=== PATIENT | male | born 1930 | race Caucasian/White ===

== ENCOUNTER 2017-01-07 11:01 | Outpatient (CLI) | payer MEDICARE, OTHER | END 2017-01-07 11:02 | disposition home or self-care (01) | DX: R73.9 Hyperglycemia, unspecified (principal) ==

== ENCOUNTER 2017-02-14 11:10 | Outpatient (CLI) | payer MEDICARE, OTHER | END 2017-02-14 11:11 | disposition home or self-care (01) | DX: R01.1 Cardiac murmur, unspecified (principal); I35.0 Nonrheumatic aortic (valve) stenosis ==

== ENCOUNTER 2017-02-24 09:04 | Outpatient (CLI) | payer MEDICARE, OTHER | END 2017-02-24 09:05 | disposition critical access hospital (66) | DX: R55 Syncope and collapse (principal); S01.01XA Laceration without foreign body of scalp, initial encounter; R61 Generalized hyperhidrosis; R47.81 Slurred speech; W22.8XXA Striking against or struck by other objects, initial encounter; W18.39XA Other fall on same level, initial encounter; Y93.89 Activity, other specified; Y92.003 Bedroom of unspecified non-institutional (private) residence as the place of occurrence of the external cause | CPT/HCPCS: A0425; A0427 ==

== ENCOUNTER 2017-02-24 09:21 | Observation (INO) | payer MEDICARE, OTHER ==
[2017-02-24] MEDS ORDERED: TETANUS/DIPHTHERIA/PERTUSSIS 0.5 ML SYRINGE IM ONE ×2 (09:26→10:55)
[2017-02-24] MEDS ORDERED: SODIUM CHLORIDE 0.9% 1,000 ML IV ONE (09:29)
[2017-02-24] MEDS ORDERED: SODIUM CHLORIDE FLUSH 0.9% 10 ML SYRINGE IVP PRN (13:22)
[2017-02-24] MEDS ORDERED: ONDANSETRON 4 MG/2 ML VIAL IVP PRN (13:22)
[2017-02-24] MEDS ORDERED: ACETAMINOPHEN 325 MG TABLET PO PRN (13:22)
[2017-02-24] MEDS: SODIUM CHLORIDE FLUSH 0.9% 10 ML SYRINGE IVP SCH ×2 (15:06→20:16)
[2017-02-24] MEDS: SODIUM CHLORIDE 0.9% 1,000 ML IV SCH (15:06)
[2017-02-25] MEDS ORDERED: CARBOXYMETHYLCELLULOSE OPHTH DROPS EACHEYE PRN (01:03)
[2017-02-25] MEDS: SODIUM CHLORIDE FLUSH 0.9% 10 ML SYRINGE IVP SCH (05:02)
[2017-02-25] MEDS ORDERED: MULTIVITAMIN TABLET PO SCH (08:00)
[2017-02-25] MEDS ORDERED: POLYETHYLENE GLYCOL 3350 17 GM PACKET PO SCH (09:00)
[2017-02-25] MEDS: SODIUM CHLORIDE 0.9% 1,000 ML IV SCH (11:08)
== END 2017-02-25 12:31 | disposition home or self-care (01) ==
DX: R55 Syncope and collapse (principal); I10 Essential (primary) hypertension; E86.0 Dehydration; S01.01XA Laceration without foreign body of scalp, initial encounter; W18.39XA Other fall on same level, initial encounter; Y92.003 Bedroom of unspecified non-institutional (private) residence as the place of occurrence of the external cause; I95.9 Hypotension, unspecified; M25.551 Pain in right hip; E78.00 Pure hypercholesterolemia, unspecified; Z87.891 Personal history of nicotine dependence; Z85.46 Personal history of malignant neoplasm of prostate
CPT/HCPCS: 12002; 36415; 70450; 71020; 72125; 80053; 81003; 83605; 83690; 84484; 85025; 87040; 93005; 93010; 93880; 96360; 99284; A9270

== ENCOUNTER 2017-11-13 07:23 | Outpatient (CLI) | payer MEDICARE, OTHER | END 2017-11-13 07:24 | disposition critical access hospital (66) | LOC: EMS 07:23 | PROVIDERS: ATTEND Surgery | DX: R55 Syncope and collapse (principal); R53.83 Other fatigue; R11.0 Nausea; R03.1 Nonspecific low blood-pressure reading | CPT/HCPCS: A0425; A0427 ==

== ENCOUNTER 2017-11-13 07:37 | Observation (INO) | payer MEDICARE, OTHER ==
--- NOTE | 2017-11-13 07:52 | ED Physician Documentation ---
History of Present Illness - Stated complaint Stated Complaint: SYNCOPE - Chief complaint Chief Complaint: General - Additonal information Additional information: hx from pt and EMS 87 male BIBA for hypotension and recurrent syncope this AM pt states he was recently ill with cough saw PMD rx tessalon and cough syrup no other med changes he has then been constipated for a few days, this AM had a large BM than a watery BM and afterwards had syncope and fell several more syncopal episodes after that not related to BM no blood in BM per pt per AMS SBP was 60 when they arrived up to 9p after 400 ml of fluids pt denies any [employer] CP right now he does have upper abd pain Review of Systems Constitutional: denies: Fever, Chills Throat: denies: Sore throat Cardiac: denies: Chest pain / pressure Respiratory: reports: Cough. denies: Dyspnea GI: reports: Abdominal Pain, Constipation. denies: Nausea, Vomiting : denies: Dysuria Skin: denies: Rash Neurologic: reports: Syncope (numerous) Endocrine: denies: Easy bruising / bleeding Immunocompromised: denies: Immunocompromised PD PAST MEDICAL HISTORY - Past Medical History Cardiovascular: Hypertension, High cholesterol Respiratory: None Neuro: None Endocrine/Autoimmune: None GI: GI bleed : Other HEENT: None Psych: None Musculoskeletal: None Derm: None - Past Surgical History Past Surgical History: Yes General: Colonoscopy Ortho: Hip replacement, Knee replacement HEENT: Cataracts, Tonsil/Adenoidectomy - Present Medications Home Medications: Ambulatory Orders Medication Instructions Recorded Confirmed Lisinopril [Zestril] 5 mg PO DAILY 12/29/13 11/13/17 Rosuvastatin Calcium [Crestor] 10 mg PO QDBREAKFAST 02/02/15 11/13/17 Aspirin 81 mg PO DAILY 11/13/17 11/13/17 Docusate Sodium 200 mg PO QPM 11/13/17 11/13/17 Pantoprazole [Protonix] 40 mg PO QDAC 11/13/17 11/13/17 Vit A/Vit C/Vit E/Zinc/Copper 1 tab PO DAILY 11/13/17 11/13/17 [Icaps Areds Softgel] Vitamin B Complex 1 tab PO DAILY 11/13/17 11/13/17 - Allergies Allergies/Adverse Reactions: Allergies Allergy/AdvReac Type Severity Reaction Status Date / Time codeine AdvReac Intermediate Unknown Verified 11/13/17 07:46 Sulfa (Sulfonamide AdvReac Intermediate Rash Verified 11/13/17 07:46 Antibiotics) - Social History Does the pt smoke?: No Smoking Status: Never smoker Does the pt drink ETOH?: No Does the pt have substance abuse?: No - Immunizations Immunizations are current?: No Immunizations: TDAP current <10years - POLST Patient has POLST: Yes PD ED PE NORMAL - Vitals Vital signs reviewed: Yes (BP up to 102 now) - General General: Alert and oriented X 3 - HEENT HEENT: PERRL, Other (abrasion to face) - Neck Neck: No bony TTP (but will image given fall HI and age) - Cardiac Cardiac: RRR - Respiratory Respiratory: No respiratory distress, Clear bilaterally - Abdomen Abdomen: Other (TTP upper abd s pulsatile mass distension or guarding) - Rectal Rectal: Other (rectal = yellow brown heme neg stool QC passed) - Derm Derm: Normal color - Extremities Extremities: No edema, No calf tenderness / cord - Neuro Neuro: Alert and oriented X 3 Eye Opening: Spontaneous Motor: Obeys Commands Verbal: Oriented GCS Score: 15 Results - Vitals Vitals: Vital Signs - 24 hr 11/13/17 11/13/17 11/13/17 07:42 10:33 11:05 Temperature 36.6 C Heart Rate 82 80 79 Respiratory 14 18 17 Rate Blood Pressure 102/86 H 101/63 112/77 O2 Saturation 97 99 100 Oxygen O2 Source Room air - EKG (time done) 0744 Rate: Rate (enter#) (83) Rhythm: NSR Intervals: 1st degree AVB Ischemia: Other (some BERTA elev anterior is concave up and may be repol but will check pt EKG in 15 min to assess for developing ischemia) 0826 (pt was in CT) Rate: Rate (enter#) (81) Rhythm: NSR Intervals: 1st degree AVB Ischemia: ST elevation c/w repol Compare to prior EKG: Other (similar to EKG # 1 ST elev concave up more c/w repol or LVH than ischemia, no dynamic chnages) - Labs Labs: Laboratory Tests 11/13/17 11/13/17 11/13/17 08:25 08:25 08:25 WBC 13.0 H RBC 5.39 Hgb 12.9 L Hct 39.9 L MCV 73.9 L MCH 24.0 L MCHC 32.5 RDW 18.7 H Plt Count 326 MPV 7.3 L Neut # 11.3 H Lymph # 0.8 L Grundy # 0.6 Eos # 0.3 Baso # 0.1 Absolute Nucleated RBC 0.00 Nucleated RBC % 0.0 Sodium 139 Potassium 3.9 Chloride 106 Carbon Dioxide 23 Anion Gap 10.0 BUN 18 Creatinine 1.1 Estimated GFR (MDRD) 63 L Glucose 142 H Lactic Acid Calcium 8.4 L Total Bilirubin 0.5 AST 25 ALT 24 Alkaline Phosphatase 51 Troponin I < 0.04 Total Protein 6.5 L Albumin 3.6 Globulin 2.9 Albumin/Globulin Ratio 1.2 Lipase 21 L Urine Color Urine Clarity Urine pH Ur Specific [place] Urine Protein Urine Glucose (UA) Urine Ketones Urine Occult Blood Urine Nitrite Urine Bilirubin Urine Urobilinogen Ur Leukocyte Esterase Ur Microscopic Review Urine Culture Comments Influenza A (Rapid) Influenza B (Rapid) Influenza Types A,B Ag 11/13/17 11/13/17 11/13/17 08:25 09:40 10:08 WBC RBC Hgb Hct MCV MCH MCHC RDW Plt Count MPV Neut # Lymph # Grundy # Eos # Baso # Absolute Nucleated RBC Nucleated RBC % Sodium Potassium Chloride Carbon Dioxide Anion Gap BUN Creatinine Estimated GFR (MDRD) Glucose Lactic Acid 2.1 Calcium Total Bilirubin AST ALT Alkaline Phosphatase Troponin I Total Protein Albumin Globulin Albumin/Globulin Ratio Lipase Urine Color YELLOW Urine Clarity CLEAR Urine pH 7.0 Ur Specific [place] 1.015 Urine Protein NEGATIVE Urine Glucose (UA) NEGATIVE Urine Ketones NEGATIVE Urine Occult Blood NEGATIVE Urine Nitrite NEGATIVE Urine Bilirubin NEGATIVE Urine Urobilinogen 0.2 (NORMAL) Ur Leukocyte Esterase NEGATIVE Ur Microscopic Review NOT INDICATED Urine Culture Comments NOT INDICATED Influenza A (Rapid) Negative Influenza B (Rapid) Negative Influenza Types A,B Ag - - Rads (name of study) CTH Radiology: See rad report (no acute injury, aaron maxillary acute sinusitis) CTCS Radiology: See rad report (no fx, degen changes, scoliosis stable) CT AP Radiology: See rad report (no acute process no AAA) CXR Radiology: See rad report (stable atelectasis, no acute) PD MEDICAL DECISION MAKING - ED course ED course: recurrent syncope and hypotension no infectious cause found abd pain but CT neg for acute process heme neg stool and nl H/H abn EKG but not dynamic changes and trop neg initially felt pt merits further obs for tele echo etc but chart review shows pt has been admitted and worked up for same sx several times already within the last year including tele serial trops, echo carotids etc and no cause except dehydration has been found so then planned to give a L NS and reassess- if better may dc after all since repeating the same work up yet again is unlikely to be fruitful family arrived - d/w and family - says he is absolutely not dehydrated - she has made sure he drinks at least 3 l a day - she says that this is different than the other times and she does not feel he is safe to take home - so will obs after all - may not need echo etc done again Departure - Departure Disposition: ED Place in Observation Clinical Impression: Syncope Qualifiers: Syncope type: unspecified Qualified Code(s): R55 - Syncope and collapse Hypotension Qualifiers: Hypotension type: unspecified hypotension type Qualified Code(s): I95.9 - Hypotension, unspecified Condition: Fair Discharge Date/Time: 11/13/17 12:27
[2017-11-13 08:33] LABS: BASOPHILS # (AUTO) 0.1 10^3/uL (0.0-0.1); BASOPHILS % (AUTO) 0.5 %; EOSINOPHILS # (AUTO) 0.3 10^3/uL (0.0-0.7); EOSINOPHILS % (AUTO) 2.1 %; HGB - HEMOGLOBIN 12.9 g/dL (14.0-18.0); LYMPHOCYTES # (AUTO) 0.8 10^3/uL (1.5-3.5); LYMPHOCYTES % (AUTO) 6.5 %; MEAN CORPUSCULAR HGB CONC 32.5 g/dL (32.0-36.0); MEAN CORPUSCULAR VOLUME 73.9 fL (80.0-94.0); MEAN PLATELET VOLUME 7.3 fL (7.4-11.4); MONOCYTES # (AUTO) 0.6 10^3/uL (0.0-1.0); MONOCYTES % (AUTO) 4.4 %; NEUTROPHILS # (AUTO) 11.3 10^3/uL (1.5-6.6); NEUTROPHILS % (AUTO) 86.5 %; PLT - PLATELET COUNT 326 10^3/uL (130-450); RED BLOOD COUNT 5.39 10^6/uL (4.70-6.10); RED CELL DISTRIBUTION WIDTH 18.7 % (12.0-15.0)
--- NOTE | 2017-11-13 08:34 | CT Report ---
EXAM: CT HEAD EXAM DATE: 11/13/2017 08:17 AM. CLINICAL HISTORY: Fall HI. COMPARISON: 02/24/2017. TECHNIQUE: Multiaxial CT images were obtained from the foramen magnum to the vertex. Reformats: Coron al. IV contrast: None. In accordance with CT protocol optimization, one or more of the following dose reduction techniques w ere utilized for this exam: automated exposure control, adjustment of mA and/or KV based on patient s ize, or use of iterative reconstructive technique. FINDINGS: Parenchyma: No intraparenchymal hemorrhage. No evidence of mass, midline shift, or CT findings of acu te infarction. Palencia-white differentiation is distinct. Diffuse chronic microangiopathic white matter changes are evident. Extraaxial Spaces: Normal for age. No subdural or epidural collections identified. Ventricles: The ventricles and cortical sulci are enlarged, consistent with age-related tissue loss. Sinuses and orbits: New, moderate to severe soft tissue thickening within the left maxillary sinus an d mild thickening within the right maxillary sinus. Bones: No evidence of fracture or calvarial defect. Other: None. IMPRESSION: 1. Generalized age-related cortical atrophic changes without evidence of acute intracranial abnormali ty. 2. New moderate to severe left and mild right maxillary sinusitis. [facility] Referring Provider Line: [phone] SITE ID: [id number]
--- NOTE | 2017-11-13 08:44 | CT Report ---
EXAM: CT CERVICAL SPINE WITHOUT CONTRAST DATE: 11/13/2017 08:17 AM. HISTORY: Fall HI. Neck pain. COMPARISONS: 02/24/2017. TECHNIQUE: Thin-section axial images were acquired of the cervical spine without contrast. Post-proce ssing: Coronal and sagittal reformats. Other: None. In accordance with CT protocol optimization, one or more of the following dose reduction techniques w ere utilized for this exam: automated exposure control, adjustment of mA and/or KV based on patient s ize, or use of iterative reconstructive technique. FINDINGS: Alignment: Dextroconvexity cervical scoliosis redemonstrated. No significant listhesis. Bones: No fracture or bone lesion. Interspace Levels/Facets: Substantial, diffuse degenerative disk disease with moderate to severe disk space narrowing throughou t and moderate vertebral body spurring. There is partial C3-C4 and minimal C2-C3 intervertebral body fusion. There is facet osseous fusion on the left at C2-C3 and C3-C4. Degenerative facet disease is g reatest on the left in the upper cervical spine. These findings are without significant interval cardona ge. Hypertrophic changes are associated with bony neural foraminal stenosis which is greatest bilater ally at C4-C5 and on the right at C6-C7 and C7-T1, without significant change. Musculature: Normal. No fatty atrophy. Other: The paravertebral and prevertebral soft tissues are unremarkable. The lung apices are clear. IMPRESSION: 1. No fracture or acute abnormality. 2. Stable extensive degenerative and chronic osseous changes, as above. 3. Stable cervical dextro convexity scoliosis. [facility] Referring Provider Line: [phone] SITE ID: [id number]
--- NOTE | 2017-11-13 08:45 | XRAY Preliminary Report ---
Exam: XR CHEST 2 VIEW X-RAY IMPRESSION: 1. Stable mild left basilar probable atelectasis. 2. Stable hypoinflation and right hemidiaphragm elevation. [facility] SITE ID: [id number]
--- NOTE | 2017-11-13 08:46 | XRAY Report ---
EXAM: CHEST RADIOGRAPHY EXAM DATE: 11/13/2017 08:22 AM. CLINICAL HISTORY: Hypotension. COMPARISON: 02/24/2017. TECHNIQUE: 2 views. FINDINGS: Lungs/Pleura: Small lung volumes and right hemidiaphragm elevation are without significant change. Mi ld left basilar probable atelectasis is without gross change. Lungs otherwise demonstrate no focal op acity. No pleural effusion or pneumothorax. Mediastinum: Heart and mediastinal contours are unremarkable. Other: None. IMPRESSION: 1. Stable mild left basilar probable atelectasis. 2. Stable hypoinflation and right hemidiaphragm elevation. [facility] Referring Provider Line: [phone] SITE ID: [id number]
--- NOTE | 2017-11-13 08:55 | CT Preliminary Report ---
Exam: CT ABDOMEN/PELVIS W/O IMPRESSION: 1. No definite acute abnormality of the abdomen or the pelvis. 2. Chronic and postoperative findings, as above. [facility] SITE ID: [id number]
--- NOTE | 2017-11-13 08:55 | CT Report ---
EXAM: CT ABDOMEN AND PELVIS EXAM DATE: 11/13/2017 08:18 AM. CLINICAL HISTORY: Abd pain, hypotension, syncope, no pulsatile mass. COMPARISONS: 08/18/2007, axial images only. TECHNIQUE: Routine helical CT imaging was performed through the abdomen and pelvis. IV contrast: None . Enteric contrast: No. Reconstructions: Coronal and sagittal. In accordance with CT protocol optimization, one or more of the following dose reduction techniques w ere utilized for this exam: automated exposure control, adjustment of mA and/or KV based on patient s ize, or use of iterative reconstructive technique. FINDINGS: Lung Bases: Decreased bibasilar dependent atelectasis. Coronary artery calcifications and moderate si zed hiatal hernia redemonstrated. Liver/spleen/pancreas/adrenal glands: Unremarkable, by noncontrast imaging. Gallbladder/Bile Ducts: Unremarkable. Kidneys: Multiple bilateral small rounded renal lesions are demonstrated ranging from hypodense to is odense and hyperdense. None demonstrate substantial interval increase compared to 2006 and therefore are consistent with cysts and complex cysts. No hydronephrosis or hydroureter. Small left lateral cor tical calcification again demonstrated at the site of probable scarring. Additional tiny nonobstructi ng left calculus is stable. Peritoneal Cavity/Bowel: No definite free air, free fluid or adenopathy. The appendix is well visuali zed and normal. Colonic diverticulosis without evidence of diverticulitis. No definite acute abnormal ity of the bowel. Pelvic Organs: Limited evaluation due to artifact from hip arthroplasties and surgical clips within t he pelvis. Evidence of prior prostatectomy. No gross abnormality of the visualized bladder. Surgical clips in the region of the proximal inguinal canals. Vasculature: Moderate calcifications, without aneurysm. Bones: Status post bilateral hip arthroplasties with associated obscuring artifact. There is levoconv exity lumbar scoliosis, degenerative disease of the spine and of the SI joints. No definite acute abn ormality. Other: None. IMPRESSION: 1. No definite acute abnormality of the abdomen or the pelvis. 2. Chronic and postoperative findings, as above. [facility] Referring Provider Line: [phone] SITE ID: [id number]
[2017-11-13 09:00] LABS: ALBUMIN 3.6 g/dL (3.2-5.5); ALBUMIN/GLOBULIN RATIO 1.2 (1.0-2.2); BILIRUBIN,TOTAL 0.5 mg/dL (0.2-1.0); CALCIUM 8.4 mg/dL (8.5-10.3); CREATININE 1.1 mg/dL (0.6-1.2); TOTAL PROTEIN 6.5 g/dL (6.7-8.2)
[2017-11-13 10:13] LABS: BILIRUBIN,URINE NEGATIVE (NEGATIVE); GLUCOSE, URINE (UA) NEGATIVE (NEGATIVE); KETONES,URINE (UA) NEGATIVE (NEGATIVE); LEUKOCYTE ESTERASE, URINE NEGATIVE (NEGATIVE); NITRITE,URINE NEGATIVE (NEGATIVE); OCCULT BLOOD,URINE NEGATIVE (NEGATIVE); PROTEIN,URINE NEGATIVE (NEGATIVE); UROBILINOGEN,URINE 0.2 (NORMAL) E.U./dL (NORMAL)
[2017-11-13 10:25] LABS: CLARITY,URINE CLEAR (CLEAR)
[2017-11-13] MEDS ORDERED: SODIUM CHLORIDE 0.9% 1,000 ML IV ONE (10:33)
[2017-11-13] MEDS ORDERED: SODIUM CHLORIDE FLUSH 0.9% 10 ML SYRINGE IVP PRN (11:34)
[2017-11-13] MEDS ORDERED: ZOLPIDEM 5 MG TABLET PO PRN (11:34)
[2017-11-13] MEDS ORDERED: HYDROcod/ACETAM 5/325 MG TABLET PO PRN (11:34)
[2017-11-13] MEDS ORDERED: ONDANSETRON 4 MG/2 ML VIAL IVP PRN (11:34)
[2017-11-13] MEDS ORDERED: HYDROcod/ACETAM 10 MG/325 MG TABLET PO PRN (11:34)
[2017-11-13] MEDS ORDERED: PROCHLORPERAZINE 10 MG/2 ML VIAL IVP PRN (11:34)
[2017-11-13] MEDS: ACETAMINOPHEN 325 MG TABLET PO PRN (13:37)
[2017-11-13] MEDS: SODIUM CHLORIDE FLUSH 0.9% 10 ML SYRINGE IVP SCH ×2 (13:37→22:07)
[2017-11-13] MEDS: SODIUM CHLORIDE 0.9% 1,000 ML IV SCH ×2 (13:37→22:06)
[2017-11-13] MEDS ORDERED: ATORVASTATIN 10 MG TABLET PO SCH (21:00)
--- NOTE | 2017-11-14 04:17 | Ultrasound Preliminary Report ---
Exam: US CAROTID DOPPLER COMPLETE IMPRESSION: Less than 50% stenosis within the internal carotid arteries noted bilaterally. Validated velocity measurements with angiographic measurements and velocity criteria are extrapolated from diameter data as defined by the Society of Radiologists in Ultrasound Consensus Conference Radi ology 2003; 229;340-346. [facility] SITE ID: [id number]
--- NOTE | 2017-11-14 04:25 | Ultrasound Report ---
EXAM: CAROTID DOPPLER ULTRASOUND EXAM DATE: 11/14/2017 01:50 AM. CLINICAL HISTORY: Syncope. COMPARISON: 02/24/2017. TECHNIQUE: Real-time sonographic vascular imaging was performed by the desktop support manager through the [employer] arterial system with a linear transducer utilizing color-flow, Doppler flow and spectral analysis. Multiple digital media representative static images were saved for review. FINDINGS: There is mild bilateral calcified plaque within the common carotid artery as well as the pr oximal internal carotid artery. VELOCITIES: Right: CCA Prox: PSV 221.7 cm/sec. CCA Dist: PSV 90.9 cm/sec, EDV 19.8 cm/sec. ICA Prox: PSV 67.7 cm/sec, EDV 9.7 cm/sec. ICA Mid: PSV 52.4 cm/sec, EDV 10.20 cm/sec. ICA Dist: PSV 60.3 cm/sec, EDV 12.1 cm/sec. ECA: PSV 76.0 cm/sec. Vertebral Artery: PSV 42.0 cm/sec. RVA flow direction: Antegrade. Left: CCA Prox: PSV 120.6 cm/sec. CCA Dist: PSV 71.9 cm/sec, EDV 21.1 cm/sec. ICA Prox: PSV 67.8 cm/sec, EDV 16.8 cm/sec. ICA Mid: PSV 49.3 cm/sec, EDV 26.9 cm/sec. ICA Dist: PSV 44.8 cm/sec, EDV 14.5 cm/sec. ECA: PSV 68.7 cm/sec. Vertebral Artery: PSV 42.0 cm/sec. LVA flow direction: Antegrade. Other: None. IMPRESSION: Less than 50% stenosis within the internal carotid arteries noted bilaterally. Validated velocity measurements with angiographic measurements and velocity criteria are extrapolated from diameter data as defined by the Society of Radiologists in Ultrasound Consensus Conference Radi ology 2003; 229;340-346. [facility] Referring Provider Line: [phone] SITE ID: [id number]
[2017-11-14] MEDS: SODIUM CHLORIDE FLUSH 0.9% 10 ML SYRINGE IVP SCH (05:11)
[2017-11-14 05:36] LABS: BASOPHILS % (AUTO) 0.4 %; EOSINOPHILS # (AUTO) 0.4 10^3/uL (0.0-0.7); HGB - HEMOGLOBIN 11.5 g/dL (14.0-18.0); LYMPHOCYTES # (AUTO) 1.5 10^3/uL (1.5-3.5); LYMPHOCYTES % (AUTO) 20.6 %; MEAN CORPUSCULAR HEMOGLOBIN 23.9 pg (27.0-31.0); MEAN CORPUSCULAR HGB CONC 32.1 g/dL (32.0-36.0); MEAN CORPUSCULAR VOLUME 74.4 fL (80.0-94.0); MEAN PLATELET VOLUME 7.4 fL (7.4-11.4); MONOCYTES # (AUTO) 0.5 10^3/uL (0.0-1.0); MONOCYTES % (AUTO) 7.3 %; NEUTROPHILS # (AUTO) 4.8 10^3/uL (1.5-6.6); NEUTROPHILS % (AUTO) 66.7 %; PLT - PLATELET COUNT 294 10^3/uL (130-450); RED BLOOD COUNT 4.79 10^6/uL (4.70-6.10); RED CELL DISTRIBUTION WIDTH 18.6 % (12.0-15.0); WHITE BLOOD COUNT 7.2 x10^3/uL (4.8-10.8)
[2017-11-14 05:49] LABS: ALBUMIN 3.2 g/dL (3.2-5.5); ALBUMIN/GLOBULIN RATIO 1.2 (1.0-2.2); ALKALINE PHOSPHATASE 43 IU/L (42-121); ALT ALANINE AMINOTRANSFERASE 21 IU/L (10-60); AST ASPARTATE AMINOTRANSFERASE 21 IU/L (10-42); BILIRUBIN,TOTAL 0.5 mg/dL (0.2-1.0); BUN - BLOOD UREA NITROGEN 13 mg/dL (6-20); CALCIUM 8.4 mg/dL (8.5-10.3); CARBON DIOXIDE - CO2 26 mmol/L (21-32); CHLORIDE 109 mmol/L (101-111); CHOL/HDL RATIO 2.5 (<5.0); CHOLESTEROL 100 mg/dL; CREATININE 0.8 mg/dL (0.6-1.2); GFR - MDRD 91 (>89); GLUCOSE 98 mg/dL (70-100); HDL CHOLESTEROL 40 mg/dL; LDL CHOLESTEROL,CALCULATED 47 mg/dL; LDL/HDL RATIO 1.2 (<3.6); SODIUM 141 mmol/L (135-145); TOTAL PROTEIN 5.9 g/dL (6.7-8.2); VLDL CHOLESTEROL 13 mg/dL
[2017-11-14] MEDS ORDERED: PANTOPRAZOLE 40 MG TABLET PO SCH (07:00)
[2017-11-14] MEDS: ACETAMINOPHEN 325 MG TABLET PO PRN (07:57)
[2017-11-14] MEDS: SODIUM CHLORIDE 0.9% 1,000 ML IV SCH (08:00)
[2017-11-14] MEDS ORDERED: ASPIRIN CHEW 81 MG TABLET PO SCH (09:00)
[2017-11-14] MEDS ORDERED: ENOXAPARIN 40 MG/0.4 ML SYRINGE SUBQ SCH (09:00)
[2017-11-14] MEDS ORDERED: POLYETHYLENE GLYCOL 3350 17 GM PACKET PO SCH (09:00)
--- NOTE | 2017-11-14 10:54 | Discharge Plan ---
Discharge Plan Disposition: 01 Home, Self Care Condition: Good Diet: Regular (Drink plenty of fluids) Activity Restrictions: Activity as Tolerated Shower Restrictions: No Driving Restrictions: No Assistance Devices: Walker Instruction Topics: ED Dehydration, ED Fainting Unkn Cause Additional Instructions or Follow Up instructions: Your tests were all normal except that you were found to have aortic stenosis, which means your heart valve is tight and if you get dehydrated you will be more likely to pass out. You do not need any treatment for this but it is something to keep an eye on. You improved here with fluids and have had no further symptoms. I think it is OK for you to go home - but close follow up with your PMD is very important. Please drink plenty of fluids No Smoking: If you smoke, Please STOP! Call for help.
[2017-11-14 12:35] VITALS: BP 127/62
--- NOTE | 2017-11-14 14:03 | HISTORY & PHYSICAL EXAMINATION ---
Chief Complaint - Chief Complaint Chief Complaint: Syncope History of Present Illness - Admitted From Admitted From:: Emergency department - History Obtained From Records Reviewed: Yes History obtained from: Patient Exam Limitations: None - History of Present Illness HPI Comment/Other: Patient is an 87-year-old gentleman with a past medical history significant for hypertension, hyperlipidemia, GERD, osteoarthritis status post bilateral hip replacement and knee replacement, prostate cancer status post prostatectomy and recurrent syncopal episodes with previous workup being negative who presented to the emergency department with a chief complaint of syncope. The patient states that he was in his normal state of health and got up around 5 AM he had his normal breakfast, went outside got the morning paper and then exercised. He states that he usually goes to get coffee from the coffee shop and when he went out to go get coffee he felt like something was off and decided to come back. He states that he was lightheaded and sat down on the couch. The patient states that he has been constipated for the last 3 days and all of a sudden had the urge to go to the bathroom. He states that he went to the bathroom and had a large bowel movement and then still did not feel well and returned to his living room to lie on the recliner. He states that he lied there for less than an hour when he began feeling rumblings in his stomach and again had to pham to the bathroom. He states that this time he had another large bowel movement but it was loose diarrhea. He states denies having any blood or black stools. The patient states that he then went to get up and the next thing he remembers is his waking him up and trying to get him out of the bathroom. The patient states that he was eventually able to get out of the bathroom and onto the bed. He states that he then had an episode of nausea and vomited a significant amount. The patient's called EMS and the patient was seen at his home by EMS who found that his blood pressure was in the 60s systolic and they started IV fluid and brought him to the emergency department. The patient denies any fevers, chills, headaches, blurred vision, runny nose, sore throat, nasal congestion, neck pain, difficulty swallowing, neck stiffness , chest pain, shortness of air, palpitations, orthopnea, PND, increased lower extremity swelling, urinary urgency, urinary frequency, dysuria, recent unintentional weight loss, changes in appetite, joint pain, muscle aches, joint swelling, back pain or any focal neurologic deficits. On presentation to the emergency department the patient was afebrile he was mildly hypotensive with a blood pressure of 102/63 the patient otherwise was not in any respiratory distress. The patient underwent initial routine lab work which showed a creatinine of 1.1 and a glucose of 142 but a normal lactic acid, negative troponin, and normal electrolytes. The patient did have a slight leukocytosis of 13.0 with a left shift. The patient underwent a CT of his head which revealed generalized age-related cortical atrophic changes without evidence of acute intracranial abnormality. He did have moderate to severe left and right maxillary sinusitis. The patient also underwent a cervical spine CT which showed no fracture or acute abnormality. There was stable extensive degenerative and chronic osseous changes. The patient underwent a chest x-ray which revealed a stable mild left basilar probable atelectasis. The patient also underwent CT of his abdomen and pelvis which showed no definite acute abnormality of the abdomen or pelvis and chronic postoperative changes. The patient's EKG showed a normal sinus rhythm without any significant changes from previous EKG. The patient was given IV fluid in the emergency department with which his blood pressure did improve slightly however given that the patient had another syncopal episode it was felt that the patient warranted an observation stay and further workup. History - Past Medical History Cardiovascular: reports: Hypertension, High cholesterol Respiratory: reports: None Neuro: reports: None Endocrine/Autoimmune: reports: None GI: reports: GERD, GI bleed : reports: Other (Prostate cancer Status post prostatectomy) HEENT: reports: None Psych: reports: None Musculoskeletal: reports: Osteoarthritis Derm: reports: None MRSA Hx?: No - Past Surgical History General: reports: Colonoscopy Ortho: reports: Hip replacement, Knee replacement HEENT: reports: Cataracts, Tonsil/Adenoidectomy - Family & Social History Family History: Mother: (Mom at the age of 57 secondary to heart problems. Father of heart attack at 51), CAD, Father: , [place] Living arrangement: At home Living Situation: With spouse/s.o. Social History Notes: The patient was born in [place] and then went to high school in [place]. 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 He has been for over 60 years and continues to live at home independently with his . He has a son who is a civilian job with the and lives in [place]. Patient has a daughter who a couple of years ago. The patient has smoked for 11 years, less than a pack a day but quit many years ago. The patient no longer drinks alcohol but did so in the past and denies any illicit drug use. - POLST Patient has POLST: Yes POLST Status: Full Code Meds/Allgy - Home Medications Home Medications: Ambulatory Orders Medication Instructions Recorded Confirmed Lisinopril [Zestril] 5 mg PO DAILY 12/29/13 11/13/17 Rosuvastatin Calcium [Crestor] 10 mg PO QDBREAKFAST 02/02/15 11/13/17 Aspirin 81 mg PO DAILY 11/13/17 11/13/17 Docusate Sodium 200 mg PO QPM 11/13/17 11/13/17 Pantoprazole [Protonix] 40 mg PO QDAC 11/13/17 11/13/17 Vit A/Vit C/Vit E/Zinc/Copper 1 tab PO DAILY 11/13/17 11/13/17 [Icaps Areds Softgel] Vitamin B Complex 1 tab PO DAILY 11/13/17 11/13/17 - Allergies Allergies/Adverse Reactions: Allergies Allergy/AdvReac Type Severity Reaction Status Date / Time codeine AdvReac Intermediate Unknown Verified 11/13/17 07:46 Sulfa (Sulfonamide AdvReac Intermediate Rash Verified 11/13/17 07:46 Antibiotics) Review of Systems - Other Findings Other Findings: A comprehensive review of systems was performed the pertinent positives and negatives are stated above in the HPI and the remainder of the review of systems is negative. Exam - Vital Signs Reviewed Vital Signs: Yes Vital Signs: Vital Signs x48h Temp Pulse Resp BP Pulse Ox 11/14/17 12:31 36.2 C L 55 L 16 127/62 100 11/14/17 07:38 36.6 C 69 20 108/57 L 97 - Physical Exam General Appearance: positive: No acute distress, Alert Eyes Bilateral: positive: Normal inspection, PERRL, EOMI, No lid inflammation, Conjunctivae nml, No scleral icterus ENT: positive: ENT inspection nml, Pharynx nml, Dry mucous membranes. negative : Purulent nasal drainage, Pharyngeal erythema, Oral lesions Neck: positive: Nml inspection, Thyroid nml, No JVD, Trachea midline. negative : Thyromegaly, Lymphadenopathy (R), Lymphadenopathy (L), Carotid bruit, Tracheal deviation Cardiovascular: positive: Regular rate & rhythm, No gallop, Systolic murmur Peripheral Pulses: positive: 2+ Abdomen: positive: Non-tender, No organomegaly, Nml bowel sounds, No distention. negative: Guarding, Rebound, Hepatomegaly Back: positive: Nml inspection. negative: CVA tenderness (R), CVA tenderness (L ) Skin: positive: Color nml, No rash, Warm. negative: Cyanosis Extremities: positive: Non-tender, Full ROM, Nml appearance, No pedal edema Neurologic/Psychiatric: positive: Oriented x3, CN's nml (2-12), Motor nml, Sensation nml, Mood/affect nml Conclusion/Plan - Problem List (1) Syncope Conclusion/Plan: Patient presented with a syncopal episode. He had diarrhea and stood up from the toilet when he passed out. Patient was only down for short period of time does not know if he hit his head but had no significant trauma. Patient did undergo CT of his head and cervical spine which were negative. The patient had no significant new changes on his EKG and troponin was negative. Patient was placed in observation for syncope workup. Patient has had multiple episodes of syncope in the past and workup has been negative in the past. Patient's syncope is likely vasovagal and likely secondary to dehydration from diarrhea from possible gastroenteritis. The patient was hypotensive when found at home and mildly hypotensive on presentation to the emergency department which did improve with IV fluid. Plan: Patient will be placed on telemetry and monitored overnight We will get an echocardiogram We will get a carotid Doppler Patient will be given IV fluids We will monitor patient's blood pressure We will get serial troponins Qualifiers: Syncope type: unspecified Qualified Code(s): R55 - Syncope and collapse (2) Gastroenteritis Conclusion/Plan: Patient presented with syncopal episode and prior to the episode did have an episode of diarrhea and then later had vomiting. The patient's CT abdomen pelvis was negative. The patient was hypotensive on presentation and did have leukocytosis. Patient appears likely to have a gastroenteritis which caused him to become hypotensive and vasovagal. Plan: Patient will be given IV fluids We will monitor for any further diarrhea if patient has further episodes we will send stool for testing Patient will be given antiemetics as needed (3) Hypertension Conclusion/Plan: Patient has a history of hypertension but was hypotensive on presentation to the emergency department after a syncopal episode. Patient's blood pressure medications will be held Patient will be given IV fluids We will monitor patient's blood pressure Qualifiers: Hypertension type: essential hypertension Qualified Code(s): I10 - Essential (primary) hypertension (4) Hyperlipidemia Conclusion/Plan: Stable Continue home meds - Lab Results Lab results reviewed: Yes Fish Bones: 11/14/17 05:16 11/14/17 05:16 Other Lab Results: Laboratory Results WBC 7.2 x10^3/uL (4.8-10.8) 11/14/17 05:16 RBC 4.79 10^6/uL (4.70-6.10) 11/14/17 05:16 Hgb 11.5 g/dL (14.0-18.0) L 11/14/17 05:16 Hct 35.6 % (42.0-52.0) L 11/14/17 05:16 MCV 74.4 fL (80.0-94.0) L 11/14/17 05:16 MCH 23.9 pg (27.0-31.0) L 11/14/17 05:16 MCHC 32.1 g/dL (32.0-36.0) 11/14/17 05:16 RDW 18.6 % (12.0-15.0) H 11/14/17 05:16 Plt Count 294 10^3/uL (130-450) 11/14/17 05:16 MPV 7.4 fL (7.4-11.4) 11/14/17 05:16 Neut # 4.8 10^3/uL (1.5-6.6) 11/14/17 05:16 Lymph # 1.5 10^3/uL (1.5-3.5) 11/14/17 05:16 [place] # 0.5 10^3/uL (0.0-1.0) 11/14/17 05:16 Eos # 0.4 10^3/uL (0.0-0.7) 11/14/17 05:16 Baso # 0.0 10^3/uL (0.0-0.1) 11/14/17 05:16 Absolute Nucleated RBC 0.00 x10^3/uL 11/14/17 05:16 Nucleated RBC % 0.0 /100WBC 11/14/17 05:16 Sodium 141 mmol/L (135-145) 11/14/17 05:16 Potassium 4.2 mmol/L (3.5-5.0) 11/14/17 05:16 Chloride 109 mmol/L (101-111) 11/14/17 05:16 Carbon Dioxide 26 mmol/L (21-32) 11/14/17 05:16 Anion Gap 6.0 (6-13) 11/14/17 05:16 BUN 13 mg/dL (6-20) 11/14/17 05:16 Creatinine 0.8 mg/dL (0.6-1.2) 11/14/17 05:16 Estimated GFR (MDRD) 91 (>89) 11/14/17 05:16 Glucose 98 mg/dL (70-100) 11/14/17 05:16 Lactic Acid 2.1 mmol/L (0.5-2.2) 11/13/17 08:25 Calcium 8.4 mg/dL (8.5-10.3) L 11/14/17 05:16 Total Bilirubin 0.5 mg/dL (0.2-1.0) 11/14/17 05:16 AST 21 IU/L (10-42) 11/14/17 05:16 ALT 21 IU/L (10-60) 11/14/17 05:16 Alkaline Phosphatase 43 IU/L (42-121) 11/14/17 05:16 Troponin I < 0.04 ng/mL (<0.49) 11/13/17 23:00 B-Natriuretic Peptide 107 pg/mL (5-100) H 11/14/17 05:16 Total Protein 5.9 g/dL (6.7-8.2) L 11/14/17 05:16 Albumin 3.2 g/dL (3.2-5.5) 11/14/17 05:16 Globulin 2.7 g/dL (2.1-4.2) 11/14/17 05:16 Albumin/Globulin Ratio 1.2 (1.0-2.2) 11/14/17 05:16 Triglycerides 66 mg/dL (-149) 11/14/17 05:16 Cholesterol 100 mg/dL (-199) 11/14/17 05:16 LDL Cholesterol, Calc 47 mg/dL (-129) 11/14/17 05:16 VLDL Cholesterol 13 mg/dL 11/14/17 05:16 HDL Cholesterol 40 mg/dL (60-) L 11/14/17 05:16 LDL/HDL Ratio 1.2 (<3.6) 11/14/17 05:16 Cholesterol/HDL Ratio 2.5 (<5.0) 11/14/17 05:16 Lipase 21 U/L (22-51) L 11/13/17 08:25 Urine Color YELLOW 11/13/17 10:08 Urine Clarity CLEAR (CLEAR) 11/13/17 10:08 Urine pH 7.0 PH (5.0-7.5) 11/13/17 10:08 Ur Specific Reading 1.015 (1.002-1.030) 11/13/17 10:08 Urine Protein NEGATIVE mg/dL (NEGATIVE) 11/13/17 10:08 Urine Glucose (UA) NEGATIVE mg/dL (NEGATIVE) 11/13/17 10:08 Urine Ketones NEGATIVE mg/dL (NEGATIVE) 11/13/17 10:08 Urine Occult Blood NEGATIVE (NEGATIVE) 11/13/17 10:08 Urine Nitrite NEGATIVE (NEGATIVE) 11/13/17 10:08 Urine Bilirubin NEGATIVE (NEGATIVE) 11/13/17 10:08 Urine Urobilinogen 0.2 (NORMAL) E.U./dL (NORMAL) 11/13/17 10:08 Ur Leukocyte Esterase NEGATIVE (NEGATIVE) 11/13/17 10:08 Ur Microscopic Review NOT INDICATED 11/13/17 10:08 Urine Culture Comments NOT INDICATED 11/13/17 10:08 Influenza A (Rapid) Negative (Negative) 11/13/17 09:40 Influenza B (Rapid) Negative (Negative) 11/13/17 09:40 Influenza Types A,B Ag - 11/13/17 09:40 - Diagnostic Imaging Results Diagnostic Imaging Results: positive: Final report reviewed Diagnostic Imaging Results Comments: Carotid Doppler Impression: Less than 50% stenosis within the internal carotid arteries noted bilaterally. CT head Impression: 1. Generalized age-related cortical atrophic changes without evidence of acute intracranial abnormality 2. New moderate to severe left and mild right maxillary sinusitis CT cervical spine Impression: 1. No fracture or acute abnormality 2. Stable extensive degenerative and chronic osseous changes 3. Stable cervical dextroconvexity scoliosis Chest x-ray Impression: 1. Stable mild left basilar probable atelectasis 2. Stable hypoinflation and right hemidiaphragm elevation CT abdomen/pelvis Impression: 1. No definite acute abnormality of the abdomen or pelvis 2. Chronic and postoperative findings. - EKG Results EKG Interpreted Independently: Yes EKG Comparison: Unchanged from prior EKG Core Measures - Anticipated LOS I expect patient to be DC'd or transferred within 96 hours.: Yes - Issues Hospital Issues and Management Plan: Patient was seen and examined on 11/13/2017 this is a late entry H&P. - DVT/VTE - Prophylaxis VTE/DVT Prophylaxis med ordered at admit?: Yes
--- NOTE | 2017-11-14 14:32 | DISCHARGE SUMMARY ---
Discharge Summary Admit Date: 11/13/17 Discharge Date: 11/14/17 Discharging Provider: Derick Madrigal MD Primary Care Provider: Joanna MARISCAL Code Status: Attempt Resuscitation Condition at Discharge: Good Discharge Disposition: 01 Home, Self Care - DIAGNOSES Admission Diagnoses: 1. Syncope 2. Gastroenteritis 3. Hypertension 4. Hyperlipidemia Discharge Diagnoses with Status of Each Condition: 1. Syncope: Resolved 2. Gastroenteritis: Improved 3. Moderate aortic stenosis: Stable 4. Hypertension 5. Hyperlipidemia - HPI History of Present Illness: Patient is an 87-year-old gentleman with a past medical history significant for hypertension, hyperlipidemia, GERD, osteoarthritis status post bilateral hip replacement and knee replacement, prostate cancer status post prostatectomy and recurrent syncopal episodes with previous workup being negative who presented to the emergency department with a chief complaint of syncope. The patient states that he was in his normal state of health and got up around 5 AM he had his normal breakfast, went outside got the morning paper and then exercised. He states that he usually goes to get coffee from the coffee shop and when he went out to go get coffee he felt like something was off and decided to come back. He states that he was lightheaded and sat down on the couch. The patient states that he has been constipated for the last 3 days and all of a sudden had the urge to go to the bathroom. He states that he went to the bathroom and had a large bowel movement and then still did not feel well and returned to his living room to lie on the recliner. He states that he lied there for less than an hour when he began feeling rumblings in his stomach and again had to pham to the bathroom. He states that this time he had another large bowel movement but it was loose diarrhea. He states denies having any blood or black stools. The patient states that he then went to get up and the next thing he remembers is his waking him up and trying to get him out of the bathroom. The patient states that he was eventually able to get out of the bathroom and onto the bed. He states that he then had an episode of nausea and vomited a significant amount. The patient's called EMS and the patient was seen at his home by EMS who found that his blood pressure was in the 60s systolic and they started IV fluid and brought him to the emergency department. The patient denies any fevers, chills, headaches, blurred vision, runny nose, sore throat, nasal congestion, neck pain, difficulty swallowing, neck stiffness , chest pain, shortness of air, palpitations, orthopnea, PND, increased lower extremity swelling, urinary urgency, urinary frequency, dysuria, recent unintentional weight loss, changes in appetite, joint pain, muscle aches, joint swelling, back pain or any focal neurologic deficits. On presentation to the emergency department the patient was afebrile he was mildly hypotensive with a blood pressure of 102/63 the patient otherwise was not in any respiratory distress. The patient underwent initial routine lab work which showed a creatinine of 1.1 and a glucose of 142 but a normal lactic acid, negative troponin, and normal electrolytes. The patient did have a slight leukocytosis of 13.0 with a left shift. The patient underwent a CT of his head which revealed generalized age-related cortical atrophic changes without evidence of acute intracranial abnormality. He did have moderate to severe left and right maxillary sinusitis. The patient also underwent a cervical spine CT which showed no fracture or acute abnormality. There was stable extensive degenerative and chronic osseous changes. The patient underwent a chest x-ray which revealed a stable mild left basilar probable atelectasis. The patient also underwent CT of his abdomen and pelvis which showed no definite acute abnormality of the abdomen or pelvis and chronic postoperative changes. The patient's EKG showed a normal sinus rhythm without any significant changes from previous EKG. The patient was given IV fluid in the emergency department with which his blood pressure did improve slightly however given that the patient had another syncopal episode it was felt that the patient warranted an observation stay and further workup. - HOSPITAL COURSE Hospital Course: Patient presented with episode of syncope which appears likely to have been vasovagal as patient had an episode of diarrhea while on the toilet and then stood up and passed out. The patient underwent extensive workup including CT head, CT cervical spine, carotid Doppler, echocardiogram and telemetry monitoring. The only significant finding was the patient has moderate aortic stenosis. The patient did appear to be dry on examination and had had episode of diarrhea and vomiting at home concerning for possible gastroenteritis. The patient also had a leukocytosis on presentation. Patient was given IV fluids and antiemetics while he was hospitalized. The patient had no further episodes of diarrhea or vomiting and his leukocytosis improved. The patient had no events on telemetry and was back to his normal state of health at the time of discharge. The patient was educated on his diagnosis of aortic stenosis. The patient had no medication changes made prior to discharge. The patient's blood pressure was stable and patient was in good condition at the time of discharge. - ALLERGIES Allergies/Adverse Reactions: Allergies Allergy/AdvReac Type Severity Reaction Status Date / Time codeine AdvReac Intermediate Unknown Verified 11/13/17 07:46 Sulfa (Sulfonamide AdvReac Intermediate Rash Verified 11/13/17 07:46 Antibiotics) - MEDICATIONS Home Medications: Ambulatory Orders Medication Instructions Recorded Confirmed Lisinopril [Zestril] 5 mg PO DAILY 12/29/13 11/13/17 Rosuvastatin Calcium [Crestor] 10 mg PO QDBREAKFAST 02/02/15 11/13/17 Aspirin 81 mg PO DAILY 11/13/17 11/13/17 Docusate Sodium 200 mg PO QPM 11/13/17 11/13/17 Pantoprazole [Protonix] 40 mg PO QDAC 11/13/17 11/13/17 Vit A/Vit C/Vit E/Zinc/Copper 1 tab PO DAILY 11/13/17 11/13/17 [Icaps Areds Softgel] Vitamin B Complex 1 tab PO DAILY 11/13/17 11/13/17 - PHYSICAL EXAM AT DISCHARGE General Appearance: positive: No acute distress, Alert Eyes Bilateral: positive: Normal inspection, PERRL ENT: positive: ENT inspection nml, Pharynx nml, No signs of dehydration. negative: Purulent nasal drainage, Pharyngeal erythema, Oral lesions Neck: positive: Nml inspection, Thyroid nml, No JVD, Trachea midline. negative : Lymphadenopathy (R), Lymphadenopathy (L), Stiff neck, Carotid bruit, Swelling/ bruising Respiratory: positive: Chest non-tender, No respiratory distress, Breath sounds nml. negative: Wheezes, Rales, Rhonchi Cardiovascular: positive: Regular rate & rhythm, No gallop, Systolic murmur Peripheral Pulses: positive: 2+ Abdomen: positive: Non-tender, No organomegaly, Nml bowel sounds, No distention. negative: Guarding, Rebound, Hepatomegaly Back: positive: Nml inspection. negative: CVA tenderness (R), CVA tenderness (L ) Skin: positive: Color nml, No rash, Warm. negative: Cyanosis, Pallor Extremities: positive: Non-tender, Full ROM, Nml appearance, No pedal edema Neurologic/Psychiatric: positive: Oriented x3, CN's nml (2-12), Motor nml, Sensation nml, Mood/affect nml - LABS Result Diagrams: 11/14/17 05:16 11/14/17 05:16 Other Lab Results: Laboratory Results WBC 7.2 x10^3/uL (4.8-10.8) 11/14/17 05:16 RBC 4.79 10^6/uL (4.70-6.10) 11/14/17 05:16 Hgb 11.5 g/dL (14.0-18.0) L 11/14/17 05:16 Hct 35.6 % (42.0-52.0) L 11/14/17 05:16 MCV 74.4 fL (80.0-94.0) L 11/14/17 05:16 MCH 23.9 pg (27.0-31.0) L 11/14/17 05:16 MCHC 32.1 g/dL (32.0-36.0) 11/14/17 05:16 RDW 18.6 % (12.0-15.0) H 11/14/17 05:16 Plt Count 294 10^3/uL (130-450) 11/14/17 05:16 MPV 7.4 fL (7.4-11.4) 11/14/17 05:16 Neut # 4.8 10^3/uL (1.5-6.6) 11/14/17 05:16 Lymph # 1.5 10^3/uL (1.5-3.5) 11/14/17 05:16 [place] # 0.5 10^3/uL (0.0-1.0) 11/14/17 05:16 Eos # 0.4 10^3/uL (0.0-0.7) 11/14/17 05:16 Baso # 0.0 10^3/uL (0.0-0.1) 11/14/17 05:16 Absolute Nucleated RBC 0.00 x10^3/uL 11/14/17 05:16 Nucleated RBC % 0.0 /100WBC 11/14/17 05:16 Sodium 141 mmol/L (135-145) 11/14/17 05:16 Potassium 4.2 mmol/L (3.5-5.0) 11/14/17 05:16 Chloride 109 mmol/L (101-111) 11/14/17 05:16 Carbon Dioxide 26 mmol/L (21-32) 11/14/17 05:16 Anion Gap 6.0 (6-13) 11/14/17 05:16 BUN 13 mg/dL (6-20) 11/14/17 05:16 Creatinine 0.8 mg/dL (0.6-1.2) 11/14/17 05:16 Estimated GFR (MDRD) 91 (>89) 11/14/17 05:16 Glucose 98 mg/dL (70-100) 11/14/17 05:16 Lactic Acid 2.1 mmol/L (0.5-2.2) 11/13/17 08:25 Calcium 8.4 mg/dL (8.5-10.3) L 11/14/17 05:16 Total Bilirubin 0.5 mg/dL (0.2-1.0) 11/14/17 05:16 AST 21 IU/L (10-42) 11/14/17 05:16 ALT 21 IU/L (10-60) 11/14/17 05:16 Alkaline Phosphatase 43 IU/L (42-121) 11/14/17 05:16 Troponin I < 0.04 ng/mL (<0.49) 11/13/17 23:00 B-Natriuretic Peptide 107 pg/mL (5-100) H 11/14/17 05:16 Total Protein 5.9 g/dL (6.7-8.2) L 11/14/17 05:16 Albumin 3.2 g/dL (3.2-5.5) 11/14/17 05:16 Globulin 2.7 g/dL (2.1-4.2) 11/14/17 05:16 Albumin/Globulin Ratio 1.2 (1.0-2.2) 11/14/17 05:16 Triglycerides 66 mg/dL (-149) 11/14/17 05:16 Cholesterol 100 mg/dL (-199) 11/14/17 05:16 LDL Cholesterol, Calc 47 mg/dL (-129) 11/14/17 05:16 VLDL Cholesterol 13 mg/dL 11/14/17 05:16 HDL Cholesterol 40 mg/dL (60-) L 11/14/17 05:16 LDL/HDL Ratio 1.2 (<3.6) 11/14/17 05:16 Cholesterol/HDL Ratio 2.5 (<5.0) 11/14/17 05:16 Lipase 21 U/L (22-51) L 11/13/17 08:25 Urine Color YELLOW 11/13/17 10:08 Urine Clarity CLEAR (CLEAR) 11/13/17 10:08 Urine pH 7.0 PH (5.0-7.5) 11/13/17 10:08 Ur Specific [place] 1.015 (1.002-1.030) 11/13/17 10:08 Urine Protein NEGATIVE mg/dL (NEGATIVE) 11/13/17 10:08 Urine Glucose (UA) NEGATIVE mg/dL (NEGATIVE) 11/13/17 10:08 Urine Ketones NEGATIVE mg/dL (NEGATIVE) 11/13/17 10:08 Urine Occult Blood NEGATIVE (NEGATIVE) 11/13/17 10:08 Urine Nitrite NEGATIVE (NEGATIVE) 11/13/17 10:08 Urine Bilirubin NEGATIVE (NEGATIVE) 11/13/17 10:08 Urine Urobilinogen 0.2 (NORMAL) E.U./dL (NORMAL) 11/13/17 10:08 Ur Leukocyte Esterase NEGATIVE (NEGATIVE) 11/13/17 10:08 Ur Microscopic Review NOT INDICATED 11/13/17 10:08 Urine Culture Comments NOT INDICATED 11/13/17 10:08 Influenza A (Rapid) Negative (Negative) 11/13/17 09:40 Influenza B (Rapid) Negative (Negative) 11/13/17 09:40 Influenza Types A,B Ag - 11/13/17 09:40 - DIAGNOSTIC IMAGING Diagnostic Imaging Results: Final report reviewed Diagnostic Imaging Results Comments: Carotid Doppler Impression: Less than 50% stenosis within the internal carotid arteries noted bilaterally. CT head Impression: 1. Generalized age-related cortical atrophic changes without evidence of acute intracranial abnormality 2. New moderate to severe left and mild right maxillary sinusitis CT cervical spine Impression: 1. No fracture or acute abnormality 2. Stable extensive degenerative and chronic osseous changes 3. Stable cervical dextroconvexity scoliosis Chest x-ray Impression: 1. Stable mild left basilar probable atelectasis 2. Stable hypoinflation and right hemidiaphragm elevation CT abdomen/pelvis Impression: 1. No definite acute abnormality of the abdomen or pelvis 2. Chronic and postoperative findings. - FOLLOW UP Follow Up: Patient will follow up with his primary care physician as needed. Patient was told to drink plenty of water. - TIME SPENT Time Spent in Discharge (Minutes): 35 (FAX TO PCP)
== END 2017-11-14 12:50 | disposition home or self-care (01) ==
LOC: EDUNIT# → ED 07:37 → ICU 11:34 → OBS 20:10
PROVIDERS: ADMIT Internal Medicine; ATTEND Internal Medicine
DX: R55 Syncope and collapse (principal); K52.9 Noninfective gastroenteritis and colitis, unspecified; I35.0 Nonrheumatic aortic (valve) stenosis; I95.9 Hypotension, unspecified; S00.81XA Abrasion of other part of head, initial encounter; W19.XXXA Unspecified fall, initial encounter; Y92.002 Bathroom of unspecified non-institutional (private) residence as the place of occurrence of the external cause; I10 Essential (primary) hypertension; E78.5 Hyperlipidemia, unspecified; K21.9 Gastro-esophageal reflux disease without esophagitis; Z79.82 Long term (current) use of aspirin; Z91.81 History of falling; Z85.46 Personal history of malignant neoplasm of prostate; Z96.643 Presence of artificial hip joint, bilateral; Z96.659 Presence of unspecified artificial knee joint; Z90.79 Acquired absence of other genital organ(s); Z87.891 Personal history of nicotine dependence
CPT/HCPCS: 36415; 70450; 71046; 72125; 74176; 80053; 80061; 81003; 83605; 83690; 83880; 84484; 85025; 87040; 87150; 87275; 87276; 93005; 93306; 93880; 96360; 96361; 99284; 99285; A9270; G0378; 81001; 87086

== ENCOUNTER 2018-03-25 11:22 | Outpatient (CLI) | payer MEDICARE, OTHER | END 2018-03-25 11:23 | disposition critical access hospital (66) | LOC: EMS 11:22 | PROVIDERS: ATTEND Surgery | DX: R55 Syncope and collapse (principal); R11.2 Nausea with vomiting, unspecified | CPT/HCPCS: A0425; A0427 ==

== ENCOUNTER 2018-03-25 11:39 | Emergency (ER) | payer MEDICARE, OTHER ==
--- NOTE | 2018-03-25 12:14 | ED Physician Documentation ---
History of Present Illness - Stated complaint Stated Complaint: SYNCOPE - Chief complaint Chief Complaint: General - History obtained from History obtained from: Patient, Family (), EMS - History of Present Illness Timing: Today (88-year-old gentleman with history of hypertension, hyperlipidemia, GERD, osteoarthritis, status post bilateral hip and knee replacements, prostate cancer status post prostatectomy with recurrent syncopal episodes. [place] [employer] [place] after a fairly normal morning without recent medication changes. He was changing over his cell phone. He was sitting in a chair and started to feel hot and then passed out for a couple of minutes. On dance master arrival he was looking ill and pale and had low blood pressure at 70/50 which resolves quickly with the administration of IV fluids and he feels back to normal now. Of note there was no associated chest pain, trouble breathing, diarrhea, black or tarry stools or other changes in his bowel movements recently.) Review of Systems Ten Systems: 10 systems reviewed and negative Constitutional: denies: Fever, Chills, Fatigue Cardiac: denies: Chest pain / pressure, Palpitations, Pedal edema, Calf pain Respiratory: denies: Dyspnea, Cough, Hemoptysis, Wheezing GI: denies: Abdominal Pain, Diarrhea, Hematemesis, Bloody / black stool : denies: Dysuria, Frequency PD PAST MEDICAL HISTORY - Past Medical History Cardiovascular: Hypertension, High cholesterol Respiratory: None Endocrine/Autoimmune: None GI: GERD, GI bleed : Other HEENT: None Psych: None Musculoskeletal: Osteoarthritis Derm: None - Past Surgical History Past Surgical History: Yes General: Colonoscopy Ortho: Hip replacement, Knee replacement HEENT: Cataracts, Tonsil/Adenoidectomy - Present Medications Home Medications: Ambulatory Orders Medication Instructions Recorded Confirmed Lisinopril [Zestril] 5 mg PO DAILY 12/29/13 11/13/17 Rosuvastatin Calcium [Crestor] 10 mg PO QDBREAKFAST 02/02/15 11/13/17 Aspirin 81 mg PO DAILY 11/13/17 11/13/17 Docusate Sodium 200 mg PO QPM 11/13/17 11/13/17 Pantoprazole [Protonix] 40 mg PO QDAC 11/13/17 11/13/17 Vit A/Vit C/Vit E/Zinc/Copper 1 tab PO DAILY 01/04/18 01/04/18 [Icaps Areds Softgel] Vitamin B Complex 1 tab PO DAILY 11/13/17 11/13/17 - Allergies Allergies/Adverse Reactions: Allergies Allergy/AdvReac Type Severity Reaction Status Date / Time codeine AdvReac Intermediate Unknown Verified 03/25/18 11:54 Sulfa (Sulfonamide AdvReac Intermediate Rash Verified 03/25/18 11:54 Antibiotics) - Social History Does the pt smoke?: No Smoking Status: Never smoker Does the pt drink ETOH?: No Does the pt have substance abuse?: No - Family History Family history: reports: Non contributory - Immunizations Immunizations are current?: No Immunizations: TDAP current <10years - POLST Patient has POLST: Yes POLST Status: Full Code PD ED PE NORMAL - Vitals Vital signs reviewed: Yes - General General: Alert and oriented X 3, No acute distress, Other (A little hard of hearing) - HEENT HEENT: Pharynx benign - Neck Neck: Supple, no meningeal sign, No bony TTP - Cardiac Cardiac: RRR, Other (He has a 2 out of 6 soft systolic murmur which probably correlates to mild to moderate stenosis of the aortic valve on echo that I see on review of the chart from November of this year.) - Respiratory Respiratory: No respiratory distress, Clear bilaterally - Abdomen Abdomen: Normal bowel sounds, Soft, Non tender - Derm Derm: Normal color, Warm and dry - Extremities Extremities: No edema, No calf tenderness / cord - Neuro Neuro: Alert and oriented X 3 Eye Opening: Spontaneous Motor: Obeys Commands Verbal: Oriented GCS Score: 15 - Psych Psych: Normal mood, Normal affect Results - Vitals Vitals: Vital Signs - 24 hr 03/25/18 11:39 Temperature 36.1 C L Heart Rate 84 Respiratory 18 Rate Blood Pressure 132/77 H O2 Saturation 92 Oxygen O2 Source Room air - EKG (time done) 1155 Rate: Rate (enter#) (85) Rhythm: NSR Intervals: Prolonged IA, Other (LAFB) Ischemia: Non specific changes (He has abnormal R-wave progression and submillimeter ST elevation inferiorly which is all similar and without change to the last EKG on the chart dated November 142017.) Compare to prior EKG: Unchanged from prior EKG Computer interpretation: Agree with computer - Labs Labs: Laboratory Tests 03/25/18 03/25/1803/25/18 12:27 12:27 12:27 WBC 12.0 H RBC 5.34 Hgb 12.9 L Hct 39.4 L MCV 73.8 L MCH 24.1 L MCHC 32.6 RDW 19.3 H Plt Count 271 MPV 7.4 Neut # 10.2 H Lymph # 0.9 L [place] # 0.8 Eos # 0.2 Baso # 0.0 Absolute Nucleated RBC 0.00 Nucleated RBC % 0.0 Sodium 140 Potassium 3.9 Chloride 107 Carbon Dioxide 26 Anion Gap 7.0 BUN 16 Creatinine 1.0 Estimated GFR (MDRD) 70 L Glucose 141 H Lactic Acid Calcium 8.7 Magnesium 2.0 Total Bilirubin 0.7 AST 22 ALT 21 Alkaline Phosphatase 47 Troponin I < 0.04 Total Protein 6.8 Albumin 3.9 Globulin 2.9 Albumin/Globulin Ratio 1.3 Lipase 22 Ethyl Alcohol < 5.0 03/25/18 12:27 WBC RBC Hgb Hct MCV MCH MCHC RDW Plt Count MPV Neut # Lymph # [place] # Eos # Baso # Absolute Nucleated RBC Nucleated RBC % Sodium Potassium Chloride Carbon Dioxide Anion Gap BUN Creatinine Estimated GFR (MDRD) Glucose Lactic Acid 1.2 Calcium Magnesium Total Bilirubin AST ALT Alkaline Phosphatase Troponin I Total Protein Albumin Globulin Albumin/Globulin Ratio Lipase Ethyl Alcohol PD MEDICAL DECISION MAKING - ED course ED course: 88-year-old gentleman with recurrent syncope, he has had many repeat visits for similar issues, in fact the history and physical from November reads almost to the exactly the same as it does today. He felt normal after the menstruation of IV fluids and his blood work, EKG are all similar to prior. We will check orthostatics and if okay discharge him with his . Departure - Departure Disposition: 01 Home, Self Care Clinical Impression: Syncope Qualifiers: Syncope type: unspecified Qualified Code(s): R55 - Syncope and collapse Condition: Good Record reviewed to determine appropriate education?: Yes Instructions: ED Fainting Unkn Cause Comments: Call your doctor to arrange a follow-up appointment, make the next available appointment. In the interim, return anytime if worse or if new symptoms develop.
[2018-03-25 12:32] LABS: BASOPHILS % (AUTO) 0.4 %; EOSINOPHILS # (AUTO) 0.2 10^3/uL (0.0-0.7); EOSINOPHILS % (AUTO) 1.3 %; HGB - HEMOGLOBIN 12.9 g/dL (14.0-18.0); LYMPHOCYTES # (AUTO) 0.9 10^3/uL (1.5-3.5); LYMPHOCYTES % (AUTO) 7.3 %; MEAN CORPUSCULAR HEMOGLOBIN 24.1 pg (27.0-31.0); MEAN CORPUSCULAR HGB CONC 32.6 g/dL (32.0-36.0); MEAN CORPUSCULAR VOLUME 73.8 fL (80.0-94.0); MEAN PLATELET VOLUME 7.4 fL (7.4-11.4); MONOCYTES # (AUTO) 0.8 10^3/uL (0.0-1.0); MONOCYTES % (AUTO) 6.6 %; NEUTROPHILS # (AUTO) 10.2 10^3/uL (1.5-6.6); NEUTROPHILS % (AUTO) 84.4 %; PLT - PLATELET COUNT 271 10^3/uL (130-450); RED BLOOD COUNT 5.34 10^6/uL (4.70-6.10); RED CELL DISTRIBUTION WIDTH 19.3 % (12.0-15.0)
[2018-03-25 12:46] LABS: ALBUMIN 3.9 g/dL (3.2-5.5); ALBUMIN/GLOBULIN RATIO 1.3 (1.0-2.2); ALKALINE PHOSPHATASE 47 IU/L (42-121); ALT ALANINE AMINOTRANSFERASE 21 IU/L (10-60); AST ASPARTATE AMINOTRANSFERASE 22 IU/L (10-42); BILIRUBIN,TOTAL 0.7 mg/dL (0.2-1.0); BUN - BLOOD UREA NITROGEN 16 mg/dL (6-20); CALCIUM 8.7 mg/dL (8.5-10.3); CARBON DIOXIDE - CO2 26 mmol/L (21-32); CHLORIDE 107 mmol/L (101-111); GFR - MDRD 70 (>89); GLUCOSE 141 mg/dL (70-100); LIPASE 22 U/L (22-51); SODIUM 140 mmol/L (135-145); TOTAL PROTEIN 6.8 g/dL (6.7-8.2)
[2018-03-25] MEDS: SODIUM CHLORIDE 0.9% 500 ML IV ONE (13:40)
[2018-03-25 15:12] VITALS: BP 138/82
== END 2018-03-25 15:09 | disposition home or self-care (01) ==
LOC: EDUNIT# → ED 11:39
DX: R55 Syncope and collapse (principal); I10 Essential (primary) hypertension; E78.5 Hyperlipidemia, unspecified; K21.9 Gastro-esophageal reflux disease without esophagitis; M19.90 Unspecified osteoarthritis, unspecified site; Z85.46 Personal history of malignant neoplasm of prostate; Z96.643 Presence of artificial hip joint, bilateral; Z96.653 Presence of artificial knee joint, bilateral; Z79.82 Long term (current) use of aspirin
CPT/HCPCS: 36415; 80053; 80320; 83605; 83690; 83735; 84484; 85025; 93005; 96360; 99283; 99284

== ENCOUNTER 2018-03-25 18:18 | Inpatient (IN) | payer MEDICARE, OTHER ==
--- NOTE | 2018-03-25 18:31 | ED Physician Documentation ---
History of Present Illness - Stated complaint Stated Complaint: FEVER/CHILLS - Chief complaint Chief Complaint: General - History obtained from History obtained from: Patient - History of Present Illness Timing: Other (88-year-old gentleman seen earlier in the day by me for syncope with hypotension on scene but not here. He improved after IV fluids he was orthostatic but not on discharge. His called me about an hour ago and said now he was having Rigors and fever to 100.2. I advised him to return for reevaluation. He has no specific complaints other than feeling cold. He denies cough or urinary complaints, no URI symptoms.) Review of Systems Constitutional: reports: Fever, Chills Cardiac: denies: Chest pain / pressure Respiratory: denies: Dyspnea, Cough GI: denies: Abdominal Pain, Nausea, Vomiting (not since this morning), Diarrhea PD PAST MEDICAL HISTORY - Past Medical History Cardiovascular: Hypertension, High cholesterol Respiratory: None Endocrine/Autoimmune: None GI: GERD, GI bleed : Other HEENT: None Psych: None Musculoskeletal: Osteoarthritis Derm: None - Past Surgical History Past Surgical History: Yes General: Colonoscopy Ortho: Hip replacement, Knee replacement HEENT: Cataracts, Tonsil/Adenoidectomy - Present Medications Home Medications: Ambulatory Orders Medication Instructions Recorded Confirmed Lisinopril [Zestril] 5 mg PO DAILY 12/29/13 11/13/17 Rosuvastatin Calcium [Crestor] 10 mg PO QDBREAKFAST 02/02/15 11/13/17 Aspirin 81 mg PO DAILY 11/13/17 11/13/17 Docusate Sodium 200 mg PO QPM 11/13/17 11/13/17 Pantoprazole [Protonix] 40 mg PO QDAC 11/13/17 11/13/17 Vit A/Vit C/Vit E/Zinc/Copper 1 tab PO DAILY 11/13/17 11/13/17 [Icaps Areds Softgel] Vitamin B Complex 1 tab PO DAILY 11/13/17 11/13/17 - Allergies Allergies/Adverse Reactions: Allergies Allergy/AdvReac Type Severity Reaction Status Date / Time codeine AdvReac Intermediate Unknown Verified 03/25/18 18:30 Sulfa (Sulfonamide AdvReac Intermediate Rash Verified 03/25/18 18:30 Antibiotics) - Social History Does the pt smoke?: No Smoking Status: Never smoker Does the pt drink ETOH?: No Does the pt have substance abuse?: No - Family History Family history: reports: Non contributory - Immunizations Immunizations are current?: No Immunizations: TDAP current <10years - POLST Patient has POLST: Yes POLST Status: Full Code PD ED PE NORMAL - Vitals Vital signs reviewed: Yes - General General: Alert and oriented X 3, No acute distress - HEENT HEENT: Moist mucous membranes, Pharynx benign - Neck Neck: Supple, no meningeal sign, No bony TTP - Cardiac Cardiac: RRR, No murmur - Respiratory Respiratory: Other (Rhonchi at the right base) - Abdomen Abdomen: Soft, Non tender - Back Back: No CVA TTP, No spinal TTP - Derm Derm: Normal color, Warm and dry - Extremities Extremities: No edema, No calf tenderness / cord - Neuro Neuro: Alert and oriented X 3, Normal speech - Psych Psych: Normal mood, Normal affect Results - Vitals Vitals: Vital Signs - 24 hr 03/25/18 18:20 Temperature 38 C H Heart Rate 112 H Respiratory 20 Rate Blood Pressure 150/86 H O2 Saturation 96 Oxygen O2 Source Room air - Labs Labs: Laboratory Tests 03/25/18 03/25/18 03/25/18 18:48 18:48 18:48 WBC 10.4 RBC 5.33 Hgb 12.6 L Hct 39.6 L MCV 74.3 L MCH 23.7 L MCHC 31.9 L RDW 19.3 H Plt Count 280 MPV 7.4 Neut # 8.8 H Lymph # 0.8 L [place] # 0.7 Eos # 0.0 Baso # 0.0 Absolute Nucleated RBC 0.01 Nucleated RBC % 0.0 Sodium 136 Potassium 4.0 Chloride 105 Carbon Dioxide 24 Anion Gap 7.0 BUN 15 Creatinine 0.9 Estimated GFR (MDRD) 79 L Glucose 118 H Lactic Acid 1.2 Calcium 8.4 L - Rads (name of study) 2v chest Radiology: EMP read contemporaneously ([facility]) PD MEDICAL DECISION MAKING - ED course ED course: 88-year-old gentleman presents, he had syncope earlier in the day and improved with treatment here, now with fever and Rigors and found to have otherwise asymptomatic right middle lobe pneumonia (i.e. without cough). He was cultured up and given Rocephin and Zithromax and I spoke with Dr. Madrigal for admission at 7:55 PM. Departure - Departure Disposition: 66 [facility] DC/Xfer Clinical Impression: Pneumonia Qualifiers: Pneumonia type: due to unspecified organism Laterality: right Lung location: middle lobe of lung Qualified Code(s): J18.1 - Lobar pneumonia, unspecified organism Condition: Good
[2018-03-25 18:57] LABS: BASOPHILS % (AUTO) 0.3 %; EOSINOPHILS % (AUTO) 0.3 %; HGB - HEMOGLOBIN 12.6 g/dL (14.0-18.0); LYMPHOCYTES # (AUTO) 0.8 10^3/uL (1.5-3.5); MEAN CORPUSCULAR HEMOGLOBIN 23.7 pg (27.0-31.0); MEAN CORPUSCULAR HGB CONC 31.9 g/dL (32.0-36.0); MEAN CORPUSCULAR VOLUME 74.3 fL (80.0-94.0); MEAN PLATELET VOLUME 7.4 fL (7.4-11.4); MONOCYTES # (AUTO) 0.7 10^3/uL (0.0-1.0); MONOCYTES % (AUTO) 6.8 %; NEUTROPHILS # (AUTO) 8.8 10^3/uL (1.5-6.6); NEUTROPHILS % (AUTO) 84.6 %; PLT - PLATELET COUNT 280 10^3/uL (130-450); RED BLOOD COUNT 5.33 10^6/uL (4.70-6.10); RED CELL DISTRIBUTION WIDTH 19.3 % (12.0-15.0); WHITE BLOOD COUNT 10.4 x10^3/uL (4.8-10.8)
[2018-03-25 19:09] LABS: CALCIUM 8.4 mg/dL (8.5-10.3); CREATININE 0.9 mg/dL (0.6-1.2)
--- NOTE | 2018-03-25 19:35 | XRAY Preliminary Report ---
Exam: XR CHEST 2 VIEW X-RAY IMPRESSION: Right middle lobe infiltrate. [facility] SITE ID: [id number]
--- NOTE | 2018-03-25 19:41 | XRAY Report ---
EXAM: CHEST RADIOGRAPHY EXAM DATE: 03/25/2018 07:22 PM. CLINICAL HISTORY: Fever, chills. COMPARISON: None. TECHNIQUE: 2 views. FINDINGS: Lungs/Pleura: Patchy airspace infiltrates in the right middle lobe. Left lung is clear. No effusion, vascular congestion nor pneumothorax. Mediastinum: Heart and mediastinal contours are unremarkable. Other: None. IMPRESSION: Right middle lobe infiltrate. [facility] Referring Provider Line: [phone] SITE ID: [id number]
[2018-03-25] MEDS ORDERED: AZITHROMYCIN INJ 500 MG in SODIUM CHLORIDE 0.9% 250 ML IV STA (19:47)
[2018-03-25] MEDS ORDERED: cefTRIAXone 1 GM in SODIUM CHLORIDE 0.9% MINIBAG 100 ML IV STA (19:47)
[2018-03-25] MEDS ORDERED: PROCHLORPERAZINE 10 MG/2 ML VIAL IVP PRN (20:06)
[2018-03-25] MEDS ORDERED: SODIUM CHLORIDE FLUSH 0.9% 10 ML SYRINGE IVP PRN (20:06)
[2018-03-25] MEDS ORDERED: ACETAMINOPHEN 325 MG TABLET PO PRN (20:06)
[2018-03-25] MEDS ORDERED: ONDANSETRON 4 MG/2 ML VIAL IVP PRN (20:06)
[2018-03-25] MEDS ORDERED: ZOLPIDEM 5 MG TABLET PO PRN (20:06)
[2018-03-25] MEDS ORDERED: IPRATROPIUM/ALBUTEROL 3 ML NEB INH PRN (20:06)
[2018-03-25] MEDS ORDERED: oxyCODONE 5 MG TABLET PO PRN (20:06)
--- NOTE | 2018-03-25 20:22 | HISTORY & PHYSICAL EXAMINATION ---
Chief Complaint - Chief Complaint Chief Complaint: Chills History of Present Illness - Admitted From Admitted From:: Emergency Department - History Obtained From Records Reviewed: Yes History obtained from: Patient and his Exam Limitations: None - History of Present Illness HPI Comment/Other: Patient is an 88-year-old gentleman with a past medical history significant for hypertension, hyperlipidemia, GERD, osteoarthritis status post bilateral hip replacements and knee replacements, prostate cancer status post prostatectomy and history of recurrent syncopal episodes with previous workup being negative including workup in November 2017 that was negative who presented to the emergency department with a chief complaint of chills. The patient states that he was in his normal state of health and this morning he went to the [employer] to buy a new cell phone. He states that he had set up the cell phone to carry over his old information and was walking around in the [employer] when he all of a sudden became flushed. He states at that point he took off his jacket and placed it on his walker when the next thing he remembers is waking up to a medic asking him how he is. The patient states that 1 of the cashiers at the exchange noticed that the patient looked pale and was about to pass out and was able to get over to the patient and help him to the floor. The patient believes he did lose consciousness as he does not fully remember the events after he put his jacket on his walker. He states that he does remember feeling weak right before the event. The patient also felt nauseated after the episode and did have an episode of vomiting. After this episode the patient was brought into the emergency department as he was found to be hypotensive in the field and had positive orthostatics on presentation. The patient was afebrile and although he did have a mild leukocytosis of 12,000 the remainder of his lab work was negative. The patient had a negative troponin, his EKG showed sinus rhythm without any changes from his previous EKG. The patient had no events on telemetry while he was in the emergency department and had no further symptoms. He was given fluid and then discharged home as he seemed to be in his normal state of health. The patient states that prior to going home he picked up some coffee and seemed to feel fine when he arrived home. The patient states that he went into his kitchen and then all of a sudden felt very shaky and got cold chills. The patient states that this improved after a few minutes but then returned again a few minutes later. The patient states that he had 2 or 3 episodes of chills before his called back to the emergency department. The emergency department physician told him to come back to the ER. The patient denies having any fever, cough, shortness of air, chest pain, orthopnea, PND, increased lower extremity swelling, nausea, vomiting, abdominal pain, urinary urgency, urinary frequency or any dysuria. The patient denies any headaches, blurred vision, runny nose, sore throat, nasal congestion, difficulty swallowing, joint pain, muscle aches, back pain, recent unintentional weight loss, changes in his appetite, any new skin rashes, polydipsia, hair loss, night sweats or any focal neurologic deficits. On presentation to the emergency department this time the patient was febrile with a temperature of 38.0, tachycardic with a heart rate of 112 but blood pressure was stable and he was saturating well on room air. The patient underwent repeat lab work which showed a WBC of 10.4 which was improved from earlier in the day. He also had a hemoglobin of 12.6 which was right around his baseline. The patient's lactic acid was negative his urine analysis was negative. Given his fever, chills and complaint of generalized weakness the patient also underwent an x-ray of his chest which showed a right middle lobe infiltrate. According to the pneumonia severity index the patient was at risk class III with a mortality of 0.9-2.8% and therefore was admitted to the hospital for community-acquired pneumonia. History - Past Medical History Cardiovascular: reports: Hypertension, High cholesterol Respiratory: reports: None Endocrine/Autoimmune: reports: None GI: reports: GERD, GI bleed : reports: Other HEENT: reports: None Psych: reports: None Musculoskeletal: reports: Osteoarthritis Derm: reports: None MRSA Hx?: No - Past Surgical History General: reports: Colonoscopy Ortho: reports: Hip replacement, Knee replacement HEENT: reports: Cataracts, Tonsil/Adenoidectomy - Family & Social History Family History: Mother: (Mom at 57 secondary to heart problems. Father of a heart attack at 51.), CAD, Father: , [place] Living arrangement: At home Living Situation: With spouse/s.o. Social History Notes: The patient was born in [place] and then went to high school in [place]. 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 He has been for over 60 years and continues to live at home independently with his . He has a son who is a civilian job with the and lives in [place]. Patient has a daughter who a couple of years ago. The patient is fully independent and usually ambulates independently but does use a walker from time to time. The patient has smoked for 11 years, less than a pack a day but quit many years ago. The patient no longer drinks alcohol but did so in the past and denies any illicit drug use. - POLST Patient has POLST: Yes POLST Status: Full Code Meds/Allgy - Home Medications Home Medications: Ambulatory Orders Medication Instructions Recorded Confirmed Lisinopril [Zestril] 5 mg PO DAILY 12/29/13 11/13/17 Rosuvastatin Calcium [Crestor] 10 mg PO QDBREAKFAST 02/02/15 11/13/17 Aspirin 81 mg PO DAILY 11/13/17 11/13/17 Docusate Sodium 200 mg PO QPM 11/13/17 11/13/17 Pantoprazole [Protonix] 40 mg PO QDAC 11/13/17 11/13/17 Vit A/Vit C/Vit E/Zinc/Copper 1 tab PO DAILY 11/13/17 11/13/17 [Icaps Areds Softgel] Vitamin B Complex 1 tab PO DAILY 11/13/17 11/13/17 - Allergies Allergies/Adverse Reactions: Allergies Allergy/AdvReac Type Severity Reaction Status Date / Time codeine AdvReac Intermediate Unknown Verified 03/25/18 18:30 Sulfa (Sulfonamide AdvReac Intermediate Rash Verified 03/25/18 18:30 Antibiotics) Review of Systems - Other Findings Other Findings: A comprehensive review of systems was performed the pertinent positives and negatives are stated above in the HPI and the remainder of the review of systems is negative. Exam - Vital Signs Reviewed Vital Signs: Yes Vital Signs: Vital Signs x48h Temp Pulse Resp BP Pulse Ox 03/25/18 18:20 38 C H 112 H 20 150/86 H 96 - Physical Exam General Appearance: positive: No acute distress, Alert Eyes Bilateral: positive: Normal inspection, PERRL, EOMI, No lid inflammation, Conjunctivae nml, No scleral icterus ENT: positive: ENT inspection nml, Pharynx nml, Dry mucous membranes. negative : Purulent nasal drainage, Pharyngeal erythema, Oral lesions Neck: positive: Nml inspection, Thyroid nml, No JVD, Trachea midline. negative : Thyromegaly, Lymphadenopathy (R), Lymphadenopathy (L), Carotid bruit, Tracheal deviation Respiratory: positive: Chest non-tender, No respiratory distress, Rhonchi ( Right mid lung). negative: Wheezes, Rales Cardiovascular: positive: No murmur, No gallop, Tachycardia Peripheral Pulses: positive: 2+ Abdomen: positive: Non-tender, No organomegaly, Nml bowel sounds, No distention. negative: Guarding, Rebound Back: positive: Nml inspection. negative: CVA tenderness (R), CVA tenderness (L ) Skin: positive: Color nml, No rash, Warm. negative: Diaphoresis, Pallor, Skin rash Extremities: positive: Non-tender, Full ROM, Nml appearance, No pedal edema Neurologic/Psychiatric: positive: Oriented x3, CN's nml (2-12), Motor nml, Sensation nml, Mood/affect nml Conclusion/Plan - Problem List (1) CAP (community acquired pneumonia) Conclusion/Plan: Patient initially presented with a syncopal episode earlier in the morning when he did have a leukocytosis and was hypotensive. The patient received IV fluid and appeared to be doing well and was sent home from the emergency department. Later he presented again with chills and rigors at home. On presentation this time the patient was febrile and tachycardic but leukocytosis had improved. The patient was not hypoxic or in any respiratory distress but chest x-ray did reveal a right middle lobe infiltrate. The patient's pneumonia severity index put him at class III and given his advanced age it was felt the patient would be best off treated in the hospital with IV antibiotics and IV fluids. Plan: IV ceftriaxone and azithromycin to treat community-acquired pneumonia IV fluids Blood cultures and sputum cultures Qualifiers: Laterality: right Lung location: middle lobe of lung Qualified Code(s): J18.1 - Lobar pneumonia, unspecified organism (2) Syncope Conclusion/Plan: The patient had an episode of syncope earlier in the day. The patient likely was dehydrated and had a vasovagal syncope. The patient was hypotensive when he was seen in the field but improved with IV fluids. Likely his syncope was related to a pneumonia which was diagnosed later on his second presentation to the emergency department. The patient has had recurrent syncope in the past and has had workup multiple times that has been negative. At this time we do not feel that it is necessary to place the patient on telemetry or do further workup as it appears that the patient is being treated for the likely cause of his syncope and is currently asymptomatic. Qualifiers: Syncope type: vasovagal syncope Qualified Code(s): R55 - Syncope and collapse (3) Hypertension Conclusion/Plan: The patient has history of hypertension and he has been having his blood pressure medications titrated down over the last while. Patient's blood pressure on initial presentation was low but on second presentation to the emergency department patient's blood pressure was high normal. The patient will be given IV fluids and his blood pressure medications will be continued We will monitor the patient's blood pressure and titrate medications as needed. Qualifiers: Hypertension type: essential hypertension (4) Hyperlipidemia Conclusion/Plan: The patient has history of hyperlipidemia and is currently on Crestor at home Stable Continue home meds Qualifiers: Hyperlipidemia type: unspecified Qualified Code(s): E78.5 - Hyperlipidemia , unspecified (5) Anemia Conclusion/Plan: The patient does have mild anemia which appears to be chronic. The patient has a low MCV. He is not on any iron supplements and does not appear to have any previous workup for his anemia. We will workup the patient's anemia with a iron panel, ferritin level, B12 and folate level. We will replace these if needed. Monitor CBC Qualifiers: Anemia type: unspecified type Qualified Code(s): D64.9 - Anemia, unspecified - Lab Results Lab results reviewed: Yes Fish Bones: 03/25/18 18:48 03/25/18 18:48 Other Lab Results: Laboratory Results WBC 10.4 x10^3/uL (4.8-10.8) 03/25/18 18:48 RBC 5.33 10^6/uL (4.70-6.10) 03/25/18 18:48 Hgb 12.6 g/dL (14.0-18.0) L 03/25/18 18:48 Hct 39.6 % (42.0-52.0) L 03/25/18 18:48 MCV 74.3 fL (80.0-94.0) L 03/25/18 18:48 MCH 23.7 pg (27.0-31.0) L 03/25/18 18:48 MCHC 31.9 g/dL (32.0-36.0) L 03/25/18 18:48 RDW 19.3 % (12.0-15.0) H 03/25/18 18:48 Plt Count 280 10^3/uL (130-450) 03/25/18 18:48 MPV 7.4 fL (7.4-11.4) 03/25/18 18:48 Neut # 8.8 10^3/uL (1.5-6.6) H 03/25/18 18:48 Lymph # 0.8 10^3/uL (1.5-3.5) L 03/25/18 18:48 [place] # 0.7 10^3/uL (0.0-1.0) 03/25/18 18:48 Eos # 0.0 10^3/uL (0.0-0.7) 03/25/18 18:48 Baso # 0.0 10^3/uL (0.0-0.1) 03/25/18 18:48 Absolute Nucleated RBC 0.01 x10^3/uL 03/25/18 18:48 Nucleated RBC % 0.0 /100WBC 03/25/18 18:48 Sodium 136 mmol/L (135-145) 03/25/18 18:48 Potassium 4.0 mmol/L (3.5-5.0) 03/25/18 18:48 Chloride 105 mmol/L (101-111) 03/25/18 18:48 Carbon Dioxide 24 mmol/L (21-32) 03/25/18 18:48 Anion Gap 7.0 (6-13) 03/25/18 18:48 BUN 15 mg/dL (6-20) 03/25/18 18:48 Creatinine 0.9 mg/dL (0.6-1.2) 03/25/18 18:48 Estimated GFR (MDRD) 79 (>89) L 03/25/18 18:48 Glucose 118 mg/dL (70-100) H 03/25/18 18:48 Lactic Acid 1.2 mmol/L (0.5-2.2) 03/25/18 18:48 Calcium 8.4 mg/dL (8.5-10.3) L 03/25/18 18:48 - Diagnostic Imaging Results Diagnostic Imaging Results: positive: Final report reviewed Diagnostic Imaging Results Comments: Chest x-ray Impression: Right middle lobe infiltrate. - EKG Results EKG Interpreted Independently: Yes EKG Comparison: Unchanged from prior EKG Core Measures - Anticipated LOS I expect patient to be DC'd or transferred within 96 hours.: Yes - DVT/VTE - Prophylaxis VTE/DVT Prophylaxis med ordered at admit?: Yes
[2018-03-25] MEDS: SODIUM CHLORIDE 0.9% 1,000 ML IV SCH (22:23)
[2018-03-25 22:29] LABS: BILIRUBIN,URINE NEGATIVE (NEGATIVE); GLUCOSE, URINE (UA) NEGATIVE (NEGATIVE); KETONES,URINE (UA) NEGATIVE (NEGATIVE); LEUKOCYTE ESTERASE, URINE NEGATIVE (NEGATIVE); NITRITE,URINE NEGATIVE (NEGATIVE); OCCULT BLOOD,URINE NEGATIVE (NEGATIVE); PROTEIN,URINE NEGATIVE (NEGATIVE); UROBILINOGEN,URINE 0.2 (NORMAL) E.U./dL (NORMAL)
[2018-03-25 22:34] LABS: CLARITY,URINE CLEAR (CLEAR)
[2018-03-26] MEDS: SODIUM CHLORIDE FLUSH 0.9% 10 ML SYRINGE IVP SCH ×3 (00:06→17:50)
[2018-03-26 05:54] LABS: BASOPHILS % (AUTO) 0.4 %; EOSINOPHILS # (AUTO) 0.1 10^3/uL (0.0-0.7); EOSINOPHILS % (AUTO) 1.1 %; HGB - HEMOGLOBIN 11.5 g/dL (14.0-18.0); LYMPHOCYTES # (AUTO) 1.7 10^3/uL (1.5-3.5); LYMPHOCYTES % (AUTO) 17.5 %; MEAN CORPUSCULAR HEMOGLOBIN 23.9 pg (27.0-31.0); MEAN CORPUSCULAR HGB CONC 32.4 g/dL (32.0-36.0); MEAN CORPUSCULAR VOLUME 73.7 fL (80.0-94.0); MEAN PLATELET VOLUME 7.6 fL (7.4-11.4); MONOCYTES # (AUTO) 0.8 10^3/uL (0.0-1.0); MONOCYTES % (AUTO) 7.7 %; NEUTROPHILS # (AUTO) 7.2 10^3/uL (1.5-6.6); NEUTROPHILS % (AUTO) 73.3 %; PLT - PLATELET COUNT 258 10^3/uL (130-450); RED BLOOD COUNT 4.83 10^6/uL (4.70-6.10); RED CELL DISTRIBUTION WIDTH 18.8 % (12.0-15.0); WHITE BLOOD COUNT 9.8 x10^3/uL (4.8-10.8)
[2018-03-26 06:04] LABS: CREATININE 1.1 mg/dL (0.6-1.2)
[2018-03-26] MEDS: PANTOPRAZOLE 40 MG TABLET PO SCH (06:33)
[2018-03-26] MEDS: SODIUM CHLORIDE 0.9% 1,000 ML IV SCH ×2 (07:11→17:49)
[2018-03-26] MEDS ORDERED: NON FORMULARY MED (Rosuvastatin Calcium [Crestor] 10 MG) PO SCH (08:00)
[2018-03-26] MEDS: oxyCODONE 5 MG TABLET PO PRN (09:17)
[2018-03-26] MEDS: ASPIRIN CHEW 81 MG TABLET PO SCH (09:18)
[2018-03-26] MEDS: SACCHAROMYCES BOULARDII 250 MG CAPSULE PO SCH ×2 (09:18→17:50)
[2018-03-26] MEDS: ATORVASTATIN 40 MG TABLET PO SCH (09:18)
[2018-03-26] MEDS: LISINOPRIL 5 MG TABLET PO SCH (09:18)
[2018-03-26] MEDS: ENOXAPARIN 40 MG/0.4 ML SYRINGE SUBQ SCH (09:21)
[2018-03-26] MEDS: cefTRIAXone 2 GM in SODIUM CHLORIDE 0.9% MINIBAG 100 ML IV SCH (09:22)
[2018-03-26] MEDS: POLYETHYLENE GLYCOL 3350 17 GM PACKET PO SCH (09:28)
[2018-03-26] MEDS: AZITHROMYCIN INJ 500 MG in SODIUM CHLORIDE 0.9% 250 ML IV SCH (10:02)
--- NOTE | 2018-03-26 11:23 | XRAY Report ---
RIGHT HIP AND PELVIS: 03/26/2018 CLINICAL INDICATION: Pain, difficulty with motion, history of hip replacements. FINDINGS: Frontal views of the hips and pelvis and crosstable lateral view of the right hip demonstrate bilateral hip replacements in place. Postoperative changes are seen in the pelvis. There is no evidence of acute fracture or hardware complication. IMPRESSION: RIGHT HIP REPLACEMENT IN PLACE, WITHOUT EVIDENCE OF FRACTURE OR HARDWARE COMPLICATION. TD: 03/26/2018 11:03
--- NOTE | 2018-03-26 16:17 | PROVIDER PROGRESS NOTE ---
Subjective - Prog Note Date Prog Note Date: 03/26/18 - Subjective Pt reports feeling: Improved Subjective: pt report his breath is much better. no fever, chill, CP, SOB. pt report his right hip pain, he had right hip replacement. Current Medications - Current Medications Current Medications: Active Medications Acetaminophen (Tylenol) 650 mg PO Q4HR PRN PRN Reason: Pain 1 to 4 Last Admin: 03/26/18 09:17 Dose: 325 mg Albuterol/Ipratropium (Duoneb) 3 ml INH RTQID PRN PRN Reason: Wheezing Aspirin ([facility] Aspirin) 81 mg PO DAILY [facility] Last Admin: 03/26/18 09:18 Dose: 81 mg Atorvastatin Calcium (Lipitor) 40 mg PO QDBREAKFAST [facility] Last Admin: 03/26/18 09:18 Dose: 40 mg Enoxaparin Sodium (Lovenox) 40 mg SUBQ DAILY [facility] Last Admin: 03/26/18 09:21 Dose: 40 mg Azithromycin 500 mg/ Sodium (Chloride) 250 mls @ 250 mls/hr IV DAILY [facility] Last Infusion: 03/26/18 11:02 Dose: Infused Ceftriaxone Sodium 2 gm/ (Sodium Chloride) 100 mls @ 200 mls/hr IV DAILY [facility] Last Admin: 03/26/18 09:22 Dose: 200 mls/hr Sodium Chloride (Normal Saline 0.9%) 1,000 mls @ 100 mls/hr IV .Q10H [facility] Last Admin: 03/26/18 07:11 Dose: 100 mls/hr Lisinopril (Zestril) 5 mg PO DAILY [facility] Last Admin: 03/26/18 09:18 Dose: 5 mg Ondansetron HCl (Zofran Inj) 4 mg IVP Q6HR PRN PRN Reason: Nausea / Vomiting Oxycodone HCl (Roxicodone) 5 mg PO Q4HR PRN PRN Reason: Pain 5 to 7 Last Admin: 03/26/18 09:17 Dose: 5 mg Oxycodone HCl (Roxicodone) 10 mg PO Q4HR PRN PRN Reason: Pain 8 to 10 Pantoprazole Sodium (Protonix) 40 mg PO QDAC [facility] Last Admin: 03/26/18 06:33 Dose: 40 mg Polyethylene Glycol (Miralax) 17 gm PO DAILY [facility] Last Admin: 03/26/18 09:28 Dose: Not Given Prochlorperazine Edisylate (Compazine Inj) 10 mg IVP Q6HR PRN PRN Reason: Nausea / Vomiting Saccharomyces Boulardii (Florastor) 250 mg PO BIDWM [facility] Last Admin: 03/26/18 09:18 Dose: 250 mg Sodium Chloride (Normal Saline Flush 0.9%) 10 ml IVP PRN PRN PRN Reason: NEEDED PER PROVIDER ORDERS Sodium Chloride (Normal Saline Flush 0.9%) 10 ml IVP 0100,0900,1700 [facility] Last Admin: 03/26/18 09:28 Dose: Not Given Zolpidem Tartrate (Ambien) 5 mg PO QPM PRN PRN Reason: Insomnia Lisinopril [Zestril] 5 mg PO DAILY 12/29/13 Rosuvastatin Calcium [Crestor] 10 mg PO QDBREAKFAST 02/02/15 Docusate Sodium 200 mg PO QPM 11/13/17 Vit A/Vit C/Vit E/Zinc/Copper [Icaps Areds Softgel] 1 tab PO DAILY 11/13/17 Vitamin B Complex 1 tab PO DAILY 11/13/17 Aspirin [Aspirin EC] 81 mg PO DAILY 03/26/18 Carboxymethylcellulose Sodium [Refresh Tears] 2 drops EACHEYE DAILY 03/26/18 Esomeprazole Magnesium [Nexium] 40 mg PO QDAC 03/26/18 Sennosides [Senna] 8.6 mg PO DAILY 03/26/18 Objective - Vital Signs/Intake & Output Reviewed Vital Signs: Yes Vital Signs: Vital Signs x48h Temp Pulse Pulse Resp BP Pulse Ox 03/26/18 15:38 36.3 C L 59 L 20 110/58 L 97 03/26/18 11:55 70 16 Intake & Output: Intake & Output 03/23/18 03/24/18 03/25/18 03/26/18 23:59 23:59 23:59 23:59 Intake Total 550 2150 Output Total 300 Balance 250 2150 - Objective General Appearance: positive: No acute distress, Alert. negative: Lethargic Eyes Bilateral: positive: Normal inspection, PERRL, No lid inflammation, Conjunctivae nml ENT: positive: ENT inspection nml, Pharynx nml, No signs of dehydration. negative: Purulent nasal drainage, Pharyngeal erythema, Oral lesions Neck: positive: Nml inspection, Thyroid nml, No JVD, Trachea midline. negative : Thyromegaly, Lymphadenopathy (R), Lymphadenopathy (L), Stiff neck, Carotid bruit, Swelling/bruising, Tracheal deviation Respiratory: positive: Chest non-tender, No respiratory distress, Breath sounds nml. negative: Wheezes, Rales, Rhonchi Cardiovascular: positive: Regular rate & rhythm, No murmur, No gallop. negative : Irregularly irregular, Extrasystoles, Tachycardia, Bradycardia, Systolic murmur, Diastolic murmur Peripheral Pulses: 2+ Radial (R), 2+ Radial (L), 2+ Dorsalis pedis (R), 2+ Dorsalis pedis (L) Abdomen: positive: Non-tender, No organomegaly, Nml bowel sounds, No distention. negative: Tenderness, Guarding, Rebound Back: positive: Nml inspection. negative: CVA tenderness (R), CVA tenderness (L ) Skin: positive: Color nml, No rash, Warm, Dry. negative: Cyanosis, Diaphoresis , Pallor Extremities: positive: Non-tender, Full ROM, Nml appearance. negative: Pedal edema, Calf tenderness, Joint swelling, Phani's sign/cords Neurologic/Psychiatric: positive: Oriented x3, Motor nml, Sensation nml, Mood/ affect nml. negative: Sensory loss, Facial droop, Slurred/abnml speech, Depressed mood/affect - Lab Results Fish Bones: 03/26/18 05:30 03/26/18 05:30 Other Labs: Lab Results x24hrs 03/26/18 03/26/18 03/26/18 Range/Units 05:30 05:30 05:30 WBC 9.8 (4.8-10.8) x10^3/uL RBC 4.83 (4.70-6.10) 10^6/uL Hgb 11.5 L (14.0-18.0) g/dL Hct 35.6 L (42.0-52.0) % MCV 73.7 L (80.0-94.0) fL MCH 23.9 L (27.0-31.0) pg MCHC 32.4 (32.0-36.0) g/dL RDW 18.8 H (12.0-15.0) % Plt Count 258 (130-450) 10^3/uL MPV 7.6 (7.4-11.4) fL Neut # 7.2 H (1.5-6.6) 10^3/uL Lymph # 1.7 (1.5-3.5) 10^3/uL [place] # 0.8 (0.0-1.0) 10^3/uL Eos # 0.1 (0.0-0.7) 10^3/uL Baso # 0.0 (0.0-0.1) 10^3/uL Absolute Nucleated RBC 0.00 x10^3/uL Nucleated RBC % 0.0 /100WBC Sodium 138 (135-145) mmol/L Potassium 3.7 (3.5-5.0) mmol/L Chloride 108 (101-111) mmol/L Carbon Dioxide 22 (21-32) mmol/L Anion Gap 8.0 (6-13) BUN 12 (6-20) mg/dL Creatinine 1.1 (0.6-1.2) mg/dL Estimated GFR (MDRD) 63 L (>89) Glucose 100 (70-100) mg/dL Calcium 8.0 L (8.5-10.3) mg/dL Ferritin 12.6 L (23.9-336.2) ng/mL Urine Color Urine Clarity (CLEAR) Urine pH (5.0-7.5) PH Ur Specific [place] (1.002-1.030) Urine Protein (NEGATIVE) mg/dL Urine Glucose (UA) (NEGATIVE) mg/dL Urine Ketones (NEGATIVE) mg/dL Urine Occult Blood (NEGATIVE) Urine Nitrite (NEGATIVE) Urine Bilirubin (NEGATIVE) Urine Urobilinogen (NORMAL) E.U./dL Ur Leukocyte Esterase (NEGATIVE) Ur Microscopic Review Urine Culture Comments 03/25/18 Range/Units 20:20 WBC (4.8-10.8) x10^3/uL RBC (4.70-6.10) 10^6/uL Hgb (14.0-18.0) g/dL Hct (42.0-52.0) % MCV (80.0-94.0) fL MCH (27.0-31.0) pg MCHC (32.0-36.0) g/dL RDW (12.0-15.0) % Plt Count (130-450) 10^3/uL MPV (7.4-11.4) fL Neut # (1.5-6.6) 10^3/uL Lymph # (1.5-3.5) 10^3/uL [place] # (0.0-1.0) 10^3/uL Eos # (0.0-0.7) 10^3/uL Baso # (0.0-0.1) 10^3/uL Absolute Nucleated RBC x10^3/uL Nucleated RBC % /100WBC Sodium (135-145) mmol/L Potassium (3.5-5.0) mmol/L Chloride (101-111) mmol/L Carbon Dioxide (21-32) mmol/L Anion Gap (6-13) BUN (6-20) mg/dL Creatinine (0.6-1.2) mg/dL Estimated GFR (MDRD) (>89) Glucose (70-100) mg/dL Calcium (8.5-10.3) mg/dL Ferritin (23.9-336.2) ng/mL Urine Color YELLOW Urine Clarity CLEAR (CLEAR) Urine pH 6.0 (5.0-7.5) PH Ur Specific [place] 1.020 (1.002-1.030) Urine Protein NEGATIVE (NEGATIVE) mg/dL Urine Glucose (UA) NEGATIVE (NEGATIVE) mg/dL Urine Ketones NEGATIVE (NEGATIVE) mg/dL Urine Occult Blood NEGATIVE (NEGATIVE) Urine Nitrite NEGATIVE (NEGATIVE) Urine Bilirubin NEGATIVE (NEGATIVE) Urine Urobilinogen 0.2 (NORMAL) (NORMAL) E.U./dL Ur Leukocyte Esterase NEGATIVE (NEGATIVE) Ur Microscopic Review NOT INDICATED Urine Culture Comments NOT INDICATED ABX Reporting Has patient been on IV antibiotics over the past 48 hours?: Yes Assessment/Plan - Problem List (1) Pneumonia Impression: (1) CAP (community acquired pneumonia) Conclusion/Plan: pt improved clinically, 97% Sats at room air. continue antibiotics IVF at 75cc/h Patient initially presented with a syncopal episode earlier in the morning when he did have a leukocytosis and was hypotensive. The patient received IV fluid and appeared to be doing well and was sent home from the emergency department. Later he presented again with chills and rigors at home. On presentation this time the patient was febrile and tachycardic but leukocytosis had improved. The patient was not hypoxic or in any respiratory distress but chest x-ray did reveal a right middle lobe infiltrate. The patient's pneumonia severity index put him at class III and given his advanced age it was felt the patient would be best off treated in the hospital with IV antibiotics and IV fluids. Plan: IV ceftriaxone and azithromycin to treat community-acquired pneumonia IV fluids Blood cultures and sputum cultures Qualifiers: Laterality: right Lung location: middle lobe of lung Qualified Code(s): J18.1 - Lobar pneumonia, unspecified organism (2) Syncope Conclusion/Plan: stable, no more syncope. Pt had negative on recently workup for syncope, continue monitor with vital, lab The patient had an episode of syncope earlier in the day. The patient likely was dehydrated and had a vasovagal syncope. The patient was hypotensive when he was seen in the field but improved with IV fluids. Likely his syncope was related to a pneumonia which was diagnosed later on his second presentation to the emergency department. The patient has had recurrent syncope in the past and has had workup multiple times that has been negative. At this time we do not feel that it is necessary to place the patient on telemetry or do further workup as it appears that the patient is being treated for the likely cause of his syncope and is currently asymptomatic. (3) Hypertension Conclusion/Plan: stable, continue home meds The patient has history of hypertension and he has been having his blood pressure medications titrated down over the last while. Patient's blood pressure on initial presentation was low but on second presentation to the emergency department patient's blood pressure was high normal. The patient will be given IV fluids and his blood pressure medications will be continued We will monitor the patient's blood pressure and titrate medications as needed. (4) Hyperlipidemia Conclusion/Plan: The patient has history of hyperlipidemia and is currently on Crestor at home Stable Continue home meds (5) Anemia Conclusion/Plan: mild to moderate anemia at HGB 11.5 on 88yrs old male, continue monitor with lab test order anemia study, follow up The patient does have mild anemia which appears to be chronic. The patient has a low MCV. He is not on any iron supplements and does not appear to have any previous workup for his anemia. We will workup the patient's anemia with a iron panel, ferritin level, B12 and folate level. We will replace these if needed. Monitor CBC Qualifiers: Pneumonia type: due to unspecified organism Laterality: right Lung location: middle lobe of lung Qualified Code(s): J18.1 - Lobar pneumonia, unspecified organism
[2018-03-26 17:07] LABS: MEAN RETIC VALUE 97.1; RED BLOOD COUNT 4.9 10^6/uL (4.70-6.10)
[2018-03-26 17:42] LABS: FERRITIN 22.7 ng/mL (23.9-336.2)
[2018-03-26 21:12] LABS: % IRON SATURATION 5 % (20-50); IRON 17 ug/dL (45-182); TOTAL IRON BINDING CAPACITY 335 ug/dL (250-450); TRANSFERRIN 239 mg/dL (180-329)
[2018-03-27] MEDS: SODIUM CHLORIDE FLUSH 0.9% 10 ML SYRINGE IVP SCH ×2 (01:48→08:16)
[2018-03-27 05:50] LABS: BASOPHILS # (AUTO) 0.1 10^3/uL (0.0-0.1); BASOPHILS % (AUTO) 0.7 %; EOSINOPHILS # (AUTO) 0.3 10^3/uL (0.0-0.7); EOSINOPHILS % (AUTO) 4.2 %; HGB - HEMOGLOBIN 11.4 g/dL (14.0-18.0); LYMPHOCYTES # (AUTO) 1.4 10^3/uL (1.5-3.5); LYMPHOCYTES % (AUTO) 16.7 %; MEAN CORPUSCULAR HEMOGLOBIN 23.6 pg (27.0-31.0); MEAN CORPUSCULAR HGB CONC 32.2 g/dL (32.0-36.0); MEAN CORPUSCULAR VOLUME 73.2 fL (80.0-94.0); MEAN PLATELET VOLUME 7.5 fL (7.4-11.4); MONOCYTES # (AUTO) 0.6 10^3/uL (0.0-1.0); MONOCYTES % (AUTO) 7.2 %; NEUTROPHILS # (AUTO) 5.8 10^3/uL (1.5-6.6); NEUTROPHILS % (AUTO) 71.2 %; PLT - PLATELET COUNT 252 10^3/uL (130-450); RED BLOOD COUNT 4.84 10^6/uL (4.70-6.10); WHITE BLOOD COUNT 8.1 x10^3/uL (4.8-10.8)
[2018-03-27 06:00] LABS: CREATININE 0.9 mg/dL (0.6-1.2)
[2018-03-27] MEDS: SODIUM CHLORIDE 0.9% 1,000 ML IV SCH (06:36)
[2018-03-27] MEDS: PANTOPRAZOLE 40 MG TABLET PO SCH (06:36)
[2018-03-27] MEDS: oxyCODONE 5 MG TABLET PO PRN ×2 (06:45→11:27)
[2018-03-27] MEDS ORDERED: FERROUS SULFATE 325 MG TABLET PO SCH (08:00)
[2018-03-27] MEDS: cefTRIAXone 2 GM in SODIUM CHLORIDE 0.9% MINIBAG 100 ML IV SCH (08:09)
--- NOTE | 2018-03-27 09:18 | Discharge Plan ---
Discharge Plan Disposition: Home, Self Care Condition: Stable Prescriptions: Amox/Clav 875/125 [Augmentin] 1 each PO Q12H #14 tablet Ferrous Sulfate 325 mg PO DAILY #20 tablet Diet: Regular Activity Restrictions: Activity as Tolerated Shower Restrictions: No (caregiver closely monitor, fall precaution) Assistance Devices: Walker Weight Bearing: Full Weight Instruction Topics: Iron tablets capsules extended-release tablets, Amoxicillin Clavulanic Acid tablets, Pneumonia, Syncope Causes, ED Anemia Iron Deficiency Additional Instructions or Follow Up instructions: You may follow up your PCP in 2-3 days. Should your symptoms return or worsen, you may present ER or call 911 for help. No Smoking: If you smoke, Please STOP! Call for help. Follow-up with: Joanna Wolf PA-C [Primary Care Provider] -
[2018-03-27 09:23] LABS: % IRON SATURATION 6 % (20-50); IRON 20 ug/dL (45-182); TOTAL IRON BINDING CAPACITY 316 ug/dL (250-450); TRANSFERRIN 226 mg/dL (180-329)
[2018-03-27 09:43] LABS: FOLATE 23.86 ng/mL (5.90 - >24.8)
[2018-03-27] MEDS: LISINOPRIL 5 MG TABLET PO SCH (09:48)
[2018-03-27] MEDS: ASPIRIN CHEW 81 MG TABLET PO SCH (09:48)
[2018-03-27] MEDS: SACCHAROMYCES BOULARDII 250 MG CAPSULE PO SCH (09:49)
[2018-03-27] MEDS: ATORVASTATIN 40 MG TABLET PO SCH (09:49)
[2018-03-27] MEDS: POLYETHYLENE GLYCOL 3350 17 GM PACKET PO SCH (09:52)
[2018-03-27] MEDS: AZITHROMYCIN INJ 500 MG in SODIUM CHLORIDE 0.9% 250 ML IV SCH (09:53)
[2018-03-27] MEDS: ENOXAPARIN 40 MG/0.4 ML SYRINGE SUBQ SCH (10:10)
[2018-03-27] MEDS ORDERED: DOCUSATE SODIUM 250 MG CAPSULE PO SCH (11:00)
[2018-03-27 14:37] VITALS: BP 153/82
--- NOTE | 2018-03-28 11:35 | DISCHARGE SUMMARY ---
Discharge Summary Discharge Date: 03/27/18 Discharging Provider: [place] Primary Care Provider: Martha Murillo Condition at Discharge: Stable Discharge Disposition: 01 Home, Self Care Discharge Facility Name: home - DIAGNOSES Admission Diagnoses: (1) CAP (community acquired pneumonia) (2) Syncope (3) Hypertension (4) Hyperlipidemia (5) Anemia Discharge Diagnoses with Status of Each Condition: (1) CAP (community acquired pneumonia) 98% Sat on room air, no cough, fever, chill, WBC is normal. pt request to be d/ c to home. pt is prescribed antibiotics to finish the antibiotics course. blood culture is negative. (2) Syncope no reported in hospital. Pt had recently workup which could not find the cause. Pt is advised and educated fall precaution. pt state he had family support to him. (3) Hypertension stable (4) Hyperlipidemia stable (5) Anemia anemia study reveals iron deficiency anemia. pt is prescribed iron pill. continue to be managed by his PCP. - HPI History of Present Illness: refer from Dr. Madrigal's HPI as the following: Patient is an 88-year-old gentleman with a past medical history significant for hypertension, hyperlipidemia, GERD, osteoarthritis status post bilateral hip replacements and knee replacements, prostate cancer status post prostatectomy and history of recurrent syncopal episodes with previous workup being negative including workup in November 2017 that was negative who presented to the emergency department with a chief complaint of chills. The patient states that he was in his normal state of health and this morning he went to the [employer] to buy a new cell phone. He states that he had set up the cell phone to carry over his old information and was walking around in the [employer] when he all of a sudden became flushed. He states at that point he took off his jacket and placed it on his walker when the next thing he remembers is waking up to a medic asking him how he is. The patient states that 1 of the cashiers at the exchange noticed that the patient looked pale and was about to pass out and was able to get over to the patient and help him to the floor. The patient believes he did lose consciousness as he does not fully remember the events after he put his jacket on his walker. He states that he does remember feeling weak right before the event. The patient also felt nauseated after the episode and did have an episode of vomiting. After this episode the patient was brought into the emergency department as he was found to be hypotensive in the field and had positive orthostatics on presentation. The patient was afebrile and although he did have a mild leukocytosis of 12,000 the remainder of his lab work was negative. The patient had a negative troponin, his EKG showed sinus rhythm without any changes from his previous EKG. The patient had no events on telemetry while he was in the emergency department and had no further symptoms. He was given fluid and then discharged home as he seemed to be in his normal state of health. The patient states that prior to going home he picked up some coffee and seemed to feel fine when he arrived home. The patient states that he went into his kitchen and then all of a sudden felt very shaky and got cold chills. The patient states that this improved after a few minutes but then returned again a few minutes later. The patient states that he had 2 or 3 episodes of chills before his called back to the emergency department. The emergency department physician told him to come back to the ER. The patient denies having any fever, cough, shortness of air, chest pain, orthopnea, PND, increased lower extremity swelling, nausea, vomiting, abdominal pain, urinary urgency, urinary frequency or any dysuria. The patient denies any headaches, blurred vision, runny nose, sore throat, nasal congestion, difficulty swallowing, joint pain, muscle aches, back pain, recent unintentional weight loss, changes in his appetite, any new skin rashes, polydipsia, hair loss, night sweats or any focal neurologic deficits. On presentation to the emergency department this time the patient was febrile with a temperature of 38.0, tachycardic with a heart rate of 112 but blood pressure was stable and he was saturating well on room air. The patient underwent repeat lab work which showed a WBC of 10.4 which was improved from earlier in the day. He also had a hemoglobin of 12.6 which was right around his baseline. The patient's lactic acid was negative his urine analysis was negative. Given his fever, chills and complaint of generalized weakness the patient also underwent an x-ray of his chest which showed a right middle lobe infiltrate. According to the pneumonia severity index the patient was at risk class III with a mortality of 0.9-2.8% and therefore was admitted to the hospital for community-acquired pneumonia. - ALLERGIES Allergies/Adverse Reactions: Allergies Allergy/AdvReac Type Severity Reaction Status Date / Time codeine AdvReac Intermediate Unknown Verified 03/25/18 18:30 Sulfa (Sulfonamide AdvReac Intermediate Rash Verified 03/25/18 18:30 Antibiotics) - MEDICATIONS Home Medications: Ambulatory Orders Medication Instructions Recorded Confirmed Lisinopril [Zestril] 5 mg PO DAILY 12/29/13 03/26/18 Rosuvastatin Calcium [Crestor] 10 mg PO QDBREAKFAST 02/02/15 03/26/18 Docusate Sodium 200 mg PO QPM 11/13/17 03/26/18 Vit A/Vit C/Vit E/Zinc/Copper 1 tab PO DAILY 11/13/17 03/26/18 [Icaps Areds Softgel] Vitamin B Complex 1 tab PO DAILY 11/13/17 03/26/18 Aspirin [Aspirin EC] 81 mg PO DAILY 03/26/18 03/26/18 Carboxymethylcellulose Sodium 2 drops EACHEYE DAILY 03/26/18 03/26/18 [Refresh Tears] Esomeprazole Magnesium [Nexium] 40 mg PO QDAC 03/26/18 03/26/18 Sennosides [Senna] 8.6 mg PO DAILY 03/26/18 03/26/18 Amox/Clav 875/125 [Augmentin] 1 each PO Q12H #14 tablet 03/27/18 Ferrous Sulfate 325 mg PO DAILY #20 tablet 03/27/18 - PHYSICAL EXAM AT DISCHARGE General Appearance: positive: No acute distress, Alert. negative: Lethargic Eyes Bilateral: positive: Normal inspection, PERRL, No lid inflammation, Conjunctivae nml ENT: positive: ENT inspection nml, Pharynx nml, No signs of dehydration. negative: Purulent nasal drainage, Pharyngeal erythema, Oral lesions Neck: positive: Nml inspection, Thyroid nml, No JVD, Trachea midline. negative : Thyromegaly, Lymphadenopathy (R), Lymphadenopathy (L), Stiff neck, Swelling/ bruising, Tracheal deviation Respiratory: positive: Chest non-tender, No respiratory distress, Breath sounds nml. negative: Wheezes, Rales, Rhonchi Cardiovascular: positive: Regular rate & rhythm, No murmur, No gallop. negative : Irregularly irregular, Extrasystoles, Tachycardia, Bradycardia, JVD present, Systolic murmur, Diastolic murmur Peripheral Pulses: positive: 2+ Abdomen: positive: Non-tender, No organomegaly, Nml bowel sounds, No distention. negative: Tenderness, Guarding, Rebound Back: positive: Nml inspection. negative: CVA tenderness (R), CVA tenderness (L ) Skin: positive: Color nml, No rash, Warm, Dry. negative: Cyanosis, Diaphoresis , Pallor Extremities: positive: Non-tender, Full ROM, Nml appearance. negative: Calf tenderness, Joint swelling, Phani's sign/cords Neurologic/Psychiatric: positive: Oriented x3, Motor nml, Sensation nml. negative: Weakness, Sensory loss, Facial droop, Slurred/abnml speech, Depressed mood/affect - LABS Result Diagrams: 03/27/18 05:35 03/27/18 05:35 - FOLLOW UP Follow Up: You may follow up your PCP in 2-3 days. Should your symptoms return or worsen, you may present ER or call 911 for help. - TIME SPENT Time Spent in Discharge (Minutes): 40
== END 2018-03-27 15:04 | disposition home or self-care (01) | DRG 195 ==
LOC: ED 18:18 → MS2 20:06
PROVIDERS: ADMIT Internal Medicine; ATTEND Nurse Practitioner Gerontology
DX: J18.1 Lobar pneumonia, unspecified organism (principal); R55 Syncope and collapse; M25.551 Pain in right hip; I10 Essential (primary) hypertension; E78.5 Hyperlipidemia, unspecified; M19.90 Unspecified osteoarthritis, unspecified site; D50.9 Iron deficiency anemia, unspecified; K21.9 Gastro-esophageal reflux disease without esophagitis; Z96.643 Presence of artificial hip joint, bilateral; Z96.653 Presence of artificial knee joint, bilateral; Z85.46 Personal history of malignant neoplasm of prostate; Z90.79 Acquired absence of other genital organ(s); Z79.82 Long term (current) use of aspirin; Z87.891 Personal history of nicotine dependence; Z79.899 Other long term (current) drug therapy; Z91.81 History of falling
CPT/HCPCS: 36415; 71046; 80048; 80053; 80320; 81001; 81003; 82607; 82728; 82746; 83540; 83605; 83615; 83690; 83735; 84466; 84484; 85025; 85044; 87040; 87086; 93005; 96360; 96374; 99283; 99284

== ENCOUNTER 2018-04-17 08:00 | Outpatient (CLI) | payer MEDICARE, OTHER | END 2018-04-17 23:59 | disposition home or self-care (01) | LOC: LAB.R 08:00 | PROVIDERS: ATTEND Surgery | DX: D64.9 Anemia, unspecified (principal) | CPT/HCPCS: 82270 ==

== ENCOUNTER 2018-04-21 09:45 | Outpatient (CLI) | payer MEDICARE, OTHER ==
--- NOTE | 2018-04-21 16:10 | XRAY Report ---
Procedure Date: 04/21/2018 Accession Number: [id number] / [id number] Procedure: [place] - Barium Enema w/Air CPT Code: FULL RESULT: EXAM: Barium Enema w/Air DATE: 04/21/2018 1:04 PM CLINICAL HISTORY: ANEMIA IRON DEFICIENCY COMPARISON: None TECHNIQUE: Double contrast barium enema. FINDINGS: Initial motor man view of the abdomen demonstrates a normal bowel gas pattern. Postoperative changes are noted in the pelvis. The colon is normal in caliber. Extensive diverticulosis is present. No polyp or constricting mass lesion is seen. The cecum distends normally. The appendix opacifies with contrast, and is unremarkable. IMPRESSION: Diverticulosis. No polyp or constricting mass lesion. Fluoroscopy time: 3 minutes 47 seconds; 4 spot images obtained.
== END 2018-04-21 09:46 | disposition home or self-care (01) ==
LOC: DI 09:45
PROVIDERS: ATTEND Surgery
DX: K57.30 Diverticulosis of large intestine without perforation or abscess without bleeding (principal)
CPT/HCPCS: 74280

== ENCOUNTER 2018-05-08 06:49 | Day surgery (SDC) | payer MEDICARE, OTHER ==
[2018-05-08] MEDS ORDERED: LACTATED RINGERS 1,000 ML IV ONE (07:38)
[2018-05-08] MEDS ORDERED: LIDO GARGLE 30 ML BOTTLE ONE (08:33)
[2018-05-08] MEDS ORDERED: LIDOCAINE-MPF 2% 5 ML VIAL IM ONE (08:50)
[2018-05-08] MEDS ORDERED: PROPOFOL 200 MG/20 ML VIAL IVP ONE (08:50)
[2018-05-08 09:08] VITALS: BP 139/91
== END 2018-05-08 06:50 | disposition home or self-care (01) ==
LOC: SDS 06:49
PROVIDERS: ATTEND Surgery
PROC: 0DB78ZX Excision of Stomach, Pylorus, Via Natural or Artificial Opening Endoscopic, Diagnostic (ICD-10-PCS; 2018-05-08)
PROC: 0DB48ZX Excision of Esophagogastric Junction, Via Natural or Artificial Opening Endoscopic, Diagnostic (ICD-10-PCS; principal; 2018-05-08 08:28)
DX: D50.9 Iron deficiency anemia, unspecified (principal); K29.70 Gastritis, unspecified, without bleeding; K44.9 Diaphragmatic hernia without obstruction or gangrene; K22.2 Esophageal obstruction
CPT/HCPCS: 43239; A9270; J7120; 88305

== ENCOUNTER 2018-05-27 07:20 | Outpatient (CLI) | payer MEDICARE, OTHER ==
[2018-05-27 12:34] LABS: BASOPHILS % (AUTO) 0.6 %; EOSINOPHILS # (AUTO) 0.3 10^3/uL (0.0-0.7); EOSINOPHILS % (AUTO) 4.1 %; HGB - HEMOGLOBIN 14.5 g/dL (14.0-18.0); LYMPHOCYTES # (AUTO) 1.8 10^3/uL (1.5-3.5); LYMPHOCYTES % (AUTO) 24.1 %; MEAN CORPUSCULAR HEMOGLOBIN 26.9 pg (27.0-31.0); MEAN CORPUSCULAR HGB CONC 33.1 g/dL (32.0-36.0); MEAN CORPUSCULAR VOLUME 81.1 fL (80.0-94.0); MONOCYTES # (AUTO) 0.7 10^3/uL (0.0-1.0); MONOCYTES % (AUTO) 8.6 %; NEUTROPHILS # (AUTO) 4.8 10^3/uL (1.5-6.6); NEUTROPHILS % (AUTO) 62.6 %; PLT - PLATELET COUNT 245 10^3/uL (130-450); RED BLOOD COUNT 5.39 10^6/uL (4.70-6.10); RED CELL DISTRIBUTION WIDTH 23.2 % (12.0-15.0); WHITE BLOOD COUNT 7.7 x10^3/uL (4.8-10.8)
[2018-05-27 13:08] LABS: % IRON SATURATION 18 % (20-50); IRON 62 ug/dL (45-182); TOTAL IRON BINDING CAPACITY 340 ug/dL (250-450); TRANSFERRIN 243 mg/dL (180-329)
== END 2018-05-27 07:21 | disposition home or self-care (01) ==
LOC: LAB.WCP 07:20
PROVIDERS: ATTEND Physician Assistant Medical
DX: D50.9 Iron deficiency anemia, unspecified (principal)
CPT/HCPCS: 36415; 82728; 83540; 84466; 85025

== ENCOUNTER 2018-06-12 12:13 | Outpatient (CLI) | payer MEDICARE, OTHER ==
--- NOTE | 2018-06-12 14:43 | Ultrasound Report ---
Procedure Date: 06/12/2018 Accession Number: [id number] / [id number] Procedure: US - Carotid Doppler Complete CPT Code: FULL RESULT: EXAM: BILATERAL CAROTID AND VERTEBRAL ARTERY DUPLEX DOPPLER ULTRASOUND: EXAM DATE: 06/12/2018 01:32 PM CLINICAL HISTORY: Syncope, nonrheumatic aortic (valve) stenosis. COMPARISON: None. TECHNIQUE: Grayscale imaging, color Doppler, and duplex spectral Doppler were used to evaluate the carotid and vertebral arteries bilaterally. Static images were obtained. FINDINGS: No significant plaque is identified in the right or left common or internal carotid arteries. Normal antegrade flow is present in bilateral vertebral arteries. VELOCITIES (cm/sec): Right: RCCA Prox: PSV 126 cm/sec. RCCA Dist: PSV 71 cm/sec, EDV 13 cm/sec. RECA: PSV 72 cm/sec. R Bulb: PSV 70 cm/sec, EDV 11 cm/sec, ICA/CCA ratio 0.99. CORONA Prox: PSV 37 cm/sec, EDV 12 cm/sec, ICA/CCA ratio 0.52. CORONA Mid: PSV 47 cm/sec, EDV 20 cm/sec, ICA/CCA ratio 0.66. CORONA Dist: PSV 30 cm/sec, EDV 11 cm/sec, ICA/CCA ratio 0.42. RVA: PSV 30 cm/sec. RVA flow direction: Antegrade. Left: LCCA Prox: PSV 79 cm/sec. LCCA Dist: PSV 58 cm/sec, EDV 18 cm/sec. LECA: PSV 64 cm/sec. L Bulb: PSV 19 cm/sec, EDV 8 cm/sec, ICA/CCA ratio 0.33. LICA Prox: PSV 36 cm/sec, EDV 13 cm/sec, ICA/CCA ratio 0.62. LICA Mid: PSV 32 cm/sec, EDV 14 cm/sec, ICA/CCA ratio 0.55. LICA Dist: PSV 30 cm/sec, EDV 12 cm/sec, ICA/CCA ratio 0.52. LVA: PSV 56 cm/sec. LVA flow direction: Antegrade. ICA diameter stenosis: Right: <50% by velocity and <70% by NASCET criteria. Left: <50% by velocity and <70% by NASCET criteria. IMPRESSION: 1. No significant bilateral carotid artery plaquing. 2. In the right carotid artery there are no elevated carotid artery velocities to suggest hemodynamically significant stenosis. 3. In the left carotid artery there are no elevated carotid artery velocities to suggest hemodynamically significant stenosis. 4. Normal antegrade flow is present in bilateral vertebral arteries. General Recommendations: Stenosis =50% ICA - Follow-up ultrasound 6-12 months Stenosis <50% ICA - High Risk Patient with plaque - Follow-up ultrasound 1-2 years Normal Study but High Risk Patient - Follow-up ultrasound 3-5 years Management recommendations and diagnostic criteria are based on current IAC endorsed standards in Carotid Artery Stenosis: Grayscale and Doppler Ultrasound Diagnosis. Validated velocity measurements with angiographic measurements and velocity criteria are extrapolated from diameter data as defined by the Society of Radiologists in Ultrasound Consensus Conference Radiology 2003; 229;340-346. RADIA
== END 2018-06-12 12:14 | disposition home or self-care (01) ==
LOC: DI 12:13
PROVIDERS: ATTEND Internal Medicine Cardiovascular Disease
DX: R55 Syncope and collapse (principal); I35.0 Nonrheumatic aortic (valve) stenosis
CPT/HCPCS: 93880

== ENCOUNTER 2018-11-30 07:05 | Outpatient (CLI) | payer MEDICARE, OTHER ==
[2018-11-30 12:27] LABS: BASOPHILS % (AUTO) 0.4 %; EOSINOPHILS # (AUTO) 0.6 10^3/uL (0.0-0.7); EOSINOPHILS % (AUTO) 8.4 %; HGB - HEMOGLOBIN 15.2 g/dL (14.0-18.0); LYMPHOCYTES # (AUTO) 1.9 10^3/uL (1.5-3.5); LYMPHOCYTES % (AUTO) 26.6 %; MEAN CORPUSCULAR HEMOGLOBIN 28.3 pg (27.0-31.0); MEAN CORPUSCULAR HGB CONC 33.6 g/dL (32.0-36.0); MEAN CORPUSCULAR VOLUME 84.2 fL (80.0-94.0); MONOCYTES # (AUTO) 0.7 10^3/uL (0.0-1.0); MONOCYTES % (AUTO) 9.1 %; NEUTROPHILS % (AUTO) 55.5 %; PLT - PLATELET COUNT 276 10^3/uL (130-450); RED BLOOD COUNT 5.38 10^6/uL (4.70-6.10); RED CELL DISTRIBUTION WIDTH 15.7 % (12.0-15.0); WHITE BLOOD COUNT 7.3 x10^3/uL (4.8-10.8)
[2018-11-30 13:57] LABS: ALBUMIN 4.1 g/dL (3.2-5.5); ALBUMIN/GLOBULIN RATIO 1.3 (1.0-2.2); ALKALINE PHOSPHATASE 66 IU/L (42-121); ALT ALANINE AMINOTRANSFERASE 37 IU/L (10-60); AST ASPARTATE AMINOTRANSFERASE 29 IU/L (10-42); BILIRUBIN,TOTAL 0.7 mg/dL (0.2-1.0); BUN - BLOOD UREA NITROGEN 19 mg/dL (6-20); CALCIUM 9.2 mg/dL (8.5-10.3); CARBON DIOXIDE - CO2 25 mmol/L (21-32); CHLORIDE 103 mmol/L (101-111); CHOL/HDL RATIO 2.4 (<5.0); CHOLESTEROL 136 mg/dL; CREATININE 1.1 mg/dL (0.6-1.2); GFR - MDRD 63 (>89); GLUCOSE 111 mg/dL (70-100); HDL CHOLESTEROL 57 mg/dL; LDL CHOLESTEROL,CALCULATED 66 mg/dL; LDL/HDL RATIO 1.2 (<3.6); SODIUM 138 mmol/L (135-145); TOTAL PROTEIN 7.3 g/dL (6.7-8.2); VLDL CHOLESTEROL 13 mg/dL
== END 2018-11-30 23:59 | disposition home or self-care (01) ==
LOC: LAB.WCP 07:05
PROVIDERS: ATTEND Physician Assistant Medical
DX: E78.5 Hyperlipidemia, unspecified (principal); D50.9 Iron deficiency anemia, unspecified
CPT/HCPCS: 36415; 80053; 80061; 82728; 83721; 85025